=== PATIENT | female | born 1945 | race American Indian/Alaskan Native ===

== ENCOUNTER 2016-12-22 16:36 | Emergency (ER) | payer MEDICARE ==
[2016-12-22 17:39] VITALS: BP 142/84
== END 2016-12-22 19:05 | disposition left against medical advice (07) ==
LOC: ED 16:36
DX: R06.00 Dyspnea, unspecified (principal); Z53.21 Procedure and treatment not carried out due to patient leaving prior to being seen by health care provider

== ENCOUNTER 2017-03-23 14:32 | Inpatient (IN) | payer MEDICARE ==
[2017-03-23] MEDS ORDERED: ASPIRIN PO ONE (15:47)
--- NOTE | 2017-03-23 17:36 | Emergency Department Report ---
ED Chest Pain HPI - General Chief Complaint: Chest Pain Stated Complaint: CHEST PAIN Time Seen by Provider: 03/23/17 16:41 Source: patient, EMS Mode of arrival: Stretcher Limitations: No Limitations - History of Present Illness Initial Comments: 71 YO FEMALE PT WITH C/O RETROSTERNAL CHEST PAIN THAT BEGAN THIS MORNING AT 0400. THE PAIN IS ACHING AND DIFFERENT FROM THE PAIN THAT SHE HAD WHEN SHE HAD HER PRIOR 2 OR. THE PAIN IS NOT ASSOCIATED WITH N/V OR DIAPHORESIS AND IS NONRADIATING. SHE RATES IT 1/10 WHNE IT BEGAN AND SAID THT IT EASED OFF BUT IS STILL 1/10. SHE HAS HAD A COUGH FOR 5 DAYS AND IS A SMOKER STILL. 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 MD Complaint: chest pain -: Gradual, hour(s) (12) Onset: during rest Pain Location: substernal Pain Radiation: none Severity: mild Severity scale (0 -10): 1 Quality: aching Improves With: nothing Worsens With: nothing re: denies: nausea, vomting, diaphoresis, dyspnea - Related Data Home Medications Medication Instructions Recorded Confirmed Last Taken Ipratropium/Albuter (Nf) 2 puff IH QID 06/22/16 06/22/16 06/22/16 [Combivent Inhaler] amLODIPine [Norvasc] 10 mg PO DAILY 06/22/16 06/22/16 06/22/16 Previous Rx's Medication Instructions Recorded Last Taken Type Azithromycin [Zithromax Z-JORGE] 0 mg PO DAILY #1 tab 06/24/16 Unknown Rx Nicotine [Habitrol] 14 mg TD DAILY #30 patch 06/24/16 Unknown Rx Prednisone [predniSONE 10 mg 10 mg PO .TAPER #1 tab.ds.pk 06/24/16 Unknown Rx (6-Day Pack, 21 Tabs)] guaiFENesin DM [Robitussin Dm] 20 ml PO Q8H PRN 10 Days oral.liqd 06/24/16 Unknown Rx Allergies Allergy/AdvReac Type Severity Reaction Status Date / Time No Known Allergies Allergy Verified 06/22/16 19:30 Heart Score - HEART Score History: Highly suspicious EKG: Non-specific Age: > 65 Risk factors: > 3 risk factors or hx of atherosclerotic disease Troponin: < normal limit HEART Score: 7 ED Review of Systems ROS: Stated complaint: CHEST PAIN Other details as noted in HPI Constitutional: denies: chills, fever Eyes: denies: eye pain, eye discharge, vision change ENT: denies: ear pain, throat pain Respiratory: cough. denies: shortness of breath, wheezing Cardiovascular: denies: palpitations, syncope Endocrine: no symptoms reported Gastrointestinal: denies: abdominal pain, nausea, diarrhea Genitourinary: denies: urgency, dysuria, discharge Musculoskeletal: denies: back pain, joint swelling, arthralgia Skin: denies: rash, lesions Neurological: denies: headache, weakness, paresthesias Psychiatric: denies: anxiety, depression Hematological/Lymphatic: denies: easy bleeding, easy bruising ED Past Medical Hx - Past Medical History Hx Hypertension: Yes Hx Heart Attack/AMI: Yes (OR X2 1995,1971) Hx Congestive Heart Failure: No Hx Arthritis: Yes Hx Seizures: Yes Hx COPD: Yes Additional medical history: EPHYSEMA - Surgical History Additional Surgical History: Hyster, BACK SURGERY, LEFT SHOUDER SURGERY, RIGHT HIP REPLACEMENT - Social History Smoking Status: Current Every Day Smoker Substance Use Type: Alcohol - Medications Home Medications: Home Medications Medication Instructions Recorded Confirmed Last Taken Type Ipratropium/Albuter (Nf) 2 puff IH QID 06/22/16 06/22/16 06/22/16 History [Combivent Inhaler] amLODIPine [Norvasc] 10 mg PO DAILY 06/22/16 06/22/16 06/22/16 History Azithromycin [Zithromax Z-JORGE] 0 mg PO DAILY #1 tab 06/24/16 Unknown Rx Nicotine [Habitrol] 14 mg TD DAILY #30 patch 06/24/16 Unknown Rx Prednisone [predniSONE 10 mg 10 mg PO .TAPER #1 tab.ds.pk 06/24/16 Unknown Rx (6-Day Pack, 21 Tabs)] guaiFENesin DM [Robitussin Dm] 20 ml PO Q8H PRN 10 Days oral.liqd 06/24/16 Unknown Rx ED Physical Exam - General Limitations: No Limitations General appearance: alert, in no apparent distress - Head Head exam: Present: atraumatic, normocephalic - Eye Eye exam: Present: normal appearance, EOMI - ENT ENT exam: Present: mucous membranes moist - Neck Neck exam: Present: normal inspection, full ROM - Respiratory Respiratory exam: Present: normal lung sounds bilaterally. Absent: respiratory distress, wheezes, rales, rhonchi - Cardiovascular Cardiovascular Exam: Present: regular rate, normal rhythm, systolic murmur. Absent: diastolic murmur, rubs, gallop - GI/Abdominal GI/Abdominal exam: Present: soft, normal bowel sounds. Absent: distended, tenderness, guarding, rebound - Rectal Rectal exam: Present: deferred - Extremities Exam Extremities exam: Present: normal inspection, full ROM, pedal edema (1+ BILATERAL) - Back Exam Back exam: Present: normal inspection, full ROM - Neurological Exam Neurological exam: Present: alert, oriented X3, CN II-XII intact - Psychiatric Psychiatric exam: Present: normal affect, normal mood - Skin Skin exam: Present: warm, dry, intact, normal color. Absent: rash ED Course Vital Signs 03/23/17 03/23/17 15:32 15:48 Temperature 98.4 F Pulse Rate 79 Respiratory 20 20 Rate Blood Pressure 137/87 [Left] O2 Sat by Pulse 97 Oximetry DARREL score - Darrel Score Age > 65: (1) Yes Aspirin use within the Past 7 Days: (0) No 3 or more CAD Risk Factors: (1) Yes 2 or more Angina events in past 24 hrs: (0) No Known CAD with more than 50% Stenosis: (0) No Elevated Cardiac Markers: (0) No ST Deviation Greater than 0.5mm: (0) No DARREL Score: 2 ED Medical Decision Making - Lab Data Result diagrams: 03/23/17 16:58 03/23/17 17:05 - EKG Data -: EKG Interpreted by Md EKG shows normal: sinus rhythm, axis, intervals, QRS complexes (Q IN V1-V2), ST- T waves Rate: normal - Radiology Data Radiology results: pending (LEFT SHOULDER REPLACEMENT, REST NEGATIVE), image reviewed Critical care attestation.: If time is entered above; I have spent that time in minutes in the direct care of this critically ill patient, excluding procedure time. ED Disposition Clinical Impression: Bronchitis, COPD (chronic obstructive pulmonary disease) Chest pain Qualifiers: Chest pain type: unspecified Qualified Code(s): R07.9 - Chest pain, unspecified Disposition: DC-09 OP ADMIT IP TO THIS HOSP Is pt being admited?: Yes Does the pt Need Aspirin: No Condition: Stable Instructions: Chest Pain (ED), Chronic Obstructive Pulmonary Disease (ED), Chronic Bronchitis (ED) Referrals: PRIMARY CARE, [Primary Care Provider] - 3-5 Days Time of Disposition: 18:18 (CASE REVIEWED W TYLER DASH AND HE WILL ADMIT HER TO HIS SEVICE)
[2017-03-23 17:42] LABS: BUN/Creatinine Ratio 20; Blood Urea Nitrogen 14 mg/dL (7-17); Calcium 9.1 mg/dL (8.4-10.2); Hemolysis Index 12
[2017-03-23 17:44] LABS: Creatine Kinase MB 2.7 ng/mL (0.0-4.0)
[2017-03-23 17:45] LABS: Alanine Aminotransferase 14 units/L (7-56); Albumin 4.1 g/dL (3.9-5)
[2017-03-23 17:46] LABS: Bilirubin,Direct < 0.2 mg/dL (0-0.2)
--- NOTE | 2017-03-23 17:51 | XRay Report ---
FINAL REPORT PROCEDURE: XR CHEST 1V AP TECHNIQUE: Chest radiograph anteroposterior view. CPT 95590 HISTORY: chest pain COMPARISON: No prior studies are available for comparison. FINDINGS: The heart is diffusely enlarged. Pulmonary vasculature not distended. No evidence of pulmonary edema pleural effusion infiltrate or mass. Prosthetic left shoulder is in place. Electronic stimulating leads are seen projecting over the mid thoracic spine. No acute bony abnormalities are identified. Moderate degenerative changes noted in the right glenohumeral joint space. IMPRESSION: Cardiomegaly. Postsurgical changes left shoulder as described. Electronic stimulating leads project over the mid thoracic spine. No acute abnormality is seen..
[2017-03-23 17:52] LABS: Basophils # (Auto) 0.1 K/mm3 (0.0-0.1); Eosinophils # (Auto) 0.2 K/mm3 (0.0-0.4); Hematocrit 41.2 % (30.3-42.9); Hemoglobin 13.6 gm/dl (10.1-14.3); Lymphocytes # (Auto) 2.1 K/mm3 (1.2-5.4); Lymphocytes % (Auto) 24.4 % (13.4-35.0); Mean Corpuscular HGB Conc 33 % (30-34); Mean Corpuscular Hemoglobin 29 pg (28-32); Mean Corpuscular Volume 87 fl (79-97); Monocytes # (Auto) 0.4 K/mm3 (0.0-0.8); Monocytes % (Auto) 4.9 % (0.0-7.3); Platelet Count 335 K/mm3 (140-440); Red Blood Count 4.72 M/mm3 (3.65-5.03); Red Cell Distribution Width 15.1 % (13.2-15.2)
[2017-03-23] MEDS ORDERED: NITROSTAT SL PRN (18:20)
[2017-03-23] MEDS ORDERED: NACL 0.9% 500 ML 500 ML IV ONE (18:21)
[2017-03-23] MEDS ORDERED: ZITHROMAX PO ONE (18:21)
[2017-03-23] MEDS ORDERED: XYLOCAINE 1% MPF 5 mL INFILTRATI ONE (18:21)
[2017-03-23] MEDS ORDERED: PROVENTIL IH ONE (18:23)
[2017-03-23] MEDS ORDERED: ATROVENT IH ONE (18:23)
[2017-03-23] MEDS ORDERED: cefTRIAXone 1 GM in NACL 0.9% 20 ML IV ONE (18:45)
[2017-03-23] MEDS ORDERED: ROCEPHIN 1,000 MG in NACL 0.9% 50 ML IV NR (19:00)
[2017-03-23] MEDS ORDERED: MORPHINE IV PRN ×2 (20:25)
[2017-03-23] MEDS ORDERED: ZOFRAN IV PRN (20:25)
[2017-03-23] MEDS ORDERED: TYLENOL PO PRN (20:25)
[2017-03-23] MEDS ORDERED: PERCOCET 5/325 PO PRN (20:25)
[2017-03-23] MEDS ORDERED: MILK OF MAGNESIA PO PRN (20:25)
[2017-03-23] MEDS ORDERED: DULCOLAX PR PRN (20:25)
--- NOTE | 2017-03-23 20:25 | History and Physical Report ---
History of Present Illness Date of examination: 03/23/17 Date of admission: 03/23/17 Chief complaint: Cc CP since AM History of present illness: History of Present Illness 71 YO FEMALE PT WITH C/O RETROSTERNAL CHEST PAIN THAT BEGAN THIS MORNING AT 0400. THE PAIN IS ACHING AND DIFFERENT FROM THE PAIN THAT SHE HAD WHEN SHE HAD HER PRIOR 2 IA. THE PAIN IS NOT ASSOCIATED WITH N/V OR DIAPHORESIS AND IS NONRADIATING. SHE RATES IT 1/10 WHNE IT BEGAN AND SAID THT IT EASED OFF BUT IS STILL 1/10. SHE HAS HAD A COUGH FOR 5 DAYS AND IS A SMOKER STILL. 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 - Past Medical History Hx Hypertension: Yes Hx Heart Attack/AMI: Yes ([place] X2 1995,1971) Hx Arthritis: Yes Hx Seizures: Yes Hx COPD: Yes Additional medical history: EPHYSEMA - Surgical History Additional Surgical History: Hyster, BACK SURGERY, LEFT SHOUDER SURGERY, RIGHT HIP REPLACEMENT - Social History Smoking Status: Current Every Day Smoker Substance Use Type: Alcohol - Medications Home Medications: Home Medications Medication Instructions Recorded Confirmed Last Taken Type Ipratropium/Albuter (Nf) 2 puff IH QID 06/22/16 06/22/16 06/22/16 History [Combivent Inhaler] amLODIPine [Norvasc] 10 mg PO DAILY 06/22/16 06/22/16 06/22/16 History Azithromycin [Zithromax Z-JORGE] 0 mg PO DAILY #1 tab 06/24/16 Unknown Rx Nicotine [Habitrol] 14 mg TD DAILY #30 patch 06/24/16 Unknown Rx Prednisone [predniSONE 10 mg 10 mg PO .TAPER #1 tab.ds.pk 06/24/16 Unknown Rx (6-Day Pack, 21 Tabs)] guaiFENesin DM [Robitussin Dm] 20 ml PO Q8H PRN 10 Days oral.liqd 06/24/16 Unknown Rx Review of Systems Stated complaint: CHEST PAIN Other details as noted in HPI Constitutional: denies: chills, fever Eyes: denies: eye pain, eye discharge, vision change ENT: denies: ear pain, throat pain Respiratory: cough. denies: shortness of breath, wheezing Cardiovascular: denies: palpitations, syncope Endocrine: no symptoms reported Gastrointestinal: denies: abdominal pain, nausea, diarrhea Genitourinary: denies: urgency, dysuria, discharge Musculoskeletal: denies: back pain, joint swelling, arthralgia Skin: denies: rash, lesions Neurological: denies: headache, weakness, paresthesias Psychiatric: denies: anxiety, depression Hematological/Lymphatic: denies: easy bleeding, easy bruising Medications and Allergies Allergies Allergy/AdvReac Type Severity Reaction Status Date / Time No Known Allergies Allergy Verified 06/22/16 19:30 Home Medications Medication Instructions Recorded Confirmed Last Taken Type amLODIPine [Norvasc] 10 mg PO DAILY 06/22/16 03/23/17 03/23/17 History ALBUTEROL Inhaler [Proair] 1 puff IH QAM 03/23/17 03/23/17 03/23/17 History Budesonide/Formoterol Fumarate 1 puff IH QAM 03/23/17 03/23/17 03/23/17 History [Symbicort 160-4.5 Mcg Inhaler] Ipratropium/Albuter (Nf) 1 puff IH QAM 03/23/17 03/23/17 03/23/17 History [Combivent Inhaler] Active Meds: Active Medications Nitroglycerin (Nitrostat) 0.4 mg SL .Q5MIN PRN PRN Reason: Chest Pain Exam - Constitutional Vitals: Temp Pulse Resp BP Pulse Ox 98.1 F 80 18 154/79 100 03/23/17 19:05 03/23/17 19:28 03/23/17 19:28 03/23/17 19:05 03/23/17 19:05 General appearance: Present: no acute distress, well-nourished - EENT Eyes: Present: PERRL ENT: hearing intact, clear oral mucosa - Neck Neck: Present: supple, normal ROM - Respiratory Respiratory effort: normal Respiratory: bilateral: CTA - Cardiovascular Heart rate: 80 Rhythm: regular Heart Sounds: Present: S1 & S2. Absent: rub, click - Extremities Extremities: no ischemia, pulses intact, pulses symmetrical, No edema Peripheral Pulses: within normal limits - Abdominal General gastrointestinal: Present: soft, non-tender, non-distended, normal bowel sounds Female genitourinary: Present: normal - Integumentary Integumentary: Present: clear, warm, dry - Musculoskeletal Musculoskeletal: gait normal, strength equal bilaterally - Psychiatric Psychiatric: appropriate mood/affect, intact judgment & insight - Neurologic Neurologic: CNII-XII intact, moves all extremities - Allied Health Allied health notes reviewed: nursing, case management Results - Labs CBC & Chem 7: 03/24/17 05:36 03/24/17 05:36 Labs: Laboratory Last Values WBC 8.7 K/mm3 (4.5-11.0) 03/23/17 16:58 RBC 4.72 M/mm3 (3.65-5.03) 03/23/17 16:58 Hgb 13.6 gm/dl (10.1-14.3) 03/23/17 16:58 Hct 41.2 % (30.3-42.9) 03/23/17 16:58 MCV 87 fl (79-97) 03/23/17 16:58 MCH 29 pg (28-32) 03/23/17 16:58 MCHC 33 % (30-34) 03/23/17 16:58 RDW 15.1 % (13.2-15.2) 03/23/17 16:58 Plt Count 335 K/mm3 (140-440) 03/23/17 16:58 Lymph % (Auto) 24.4 % (13.4-35.0) 03/23/17 16:58 [place] % (Auto) 4.9 % (0.0-7.3) 03/23/17 16:58 Eos % (Auto) 2.0 % (0.0-4.3) 03/23/17 16:58 Baso % (Auto) [employer] 03/23/17 16:58 Lymph # 2.1 K/mm3 (1.2-5.4) 03/23/17 16:58 [place] # 0.4 K/mm3 (0.0-0.8) 03/23/17 16:58 Eos # 0.2 K/mm3 (0.0-0.4) 03/23/17 16:58 Baso # 0.1 K/mm3 (0.0-0.1) 03/23/17 16:58 Seg Neutrophils % 67.7 % (40.0-70.0) 03/23/17 16:58 Seg Neutrophils # 5.9 K/mm3 (1.8-7.7) 03/23/17 16:58 D-Dimer 394.80 ng/mlDDU (0-234) H 03/23/17 18:11 Sodium 142 mmol/L (137-145) 03/23/17 17:05 Potassium 3.6 mmol/L (3.6-5.0) 03/23/17 17:05 Chloride 103.1 mmol/L (98-107) 03/23/17 17:05 Carbon Dioxide 19 mmol/L (22-30) L 03/23/17 17:05 Anion Gap 24 mmol/L 03/23/17 17:05 BUN 14 mg/dL (7-17) 03/23/17 17:05 Creatinine 0.7 mg/dL (0.7-1.2) 03/23/17 17:05 Estimated GFR > 60 ml/min 03/23/17 17:05 BUN/Creatinine Ratio 20 % 03/23/17 17:05 Glucose 73 mg/dL (65-100) 03/23/17 17:05 Calcium 9.1 mg/dL (8.4-10.2) 03/23/17 17:05 Total Bilirubin 0.20 mg/dL (0.1-1.2) 03/23/17 17:05 Direct Bilirubin < 0.2 mg/dL (0-0.2) 03/23/17 17:05 Indirect Bilirubin 0.0 mg/dL 03/23/17 17:05 AST 30 units/L (5-40) 03/23/17 17:05 ALT 14 units/L (7-56) 03/23/17 17:05 Alkaline Phosphatase 100 units/L (35-129) 03/23/17 17:05 Total Creatine Kinase 120 units/L (30-135) 03/23/17 17:05 CK-MB (CK-2) 2.7 ng/mL (0.0-4.0) 03/23/17 17:05 CK-MB (CK-2) Rel Index 2.2 (0-4) 03/23/17 17:05 Troponin T < 0.010 ng/mL (0.00-0.029) 03/23/17 17:05 NT-Pro-B Natriuret Pep 76.39 pg/mL (0-900) 03/23/17 17:05 Total Protein 7.2 g/dL (6.3-8.2) 03/23/17 17:05 Albumin 4.1 g/dL (3.9-5) 03/23/17 17:05 Albumin/Globulin Ratio 1.3 % 03/23/17 17:05 Short CBC 03/23/17 03/24/17 Range/Units 16:58 05:36 WBC 8.7 6.8 (4.5-11.0) K/mm3 Hgb 13.6 13.5 (10.1-14.3) gm/dl Hct 41.2 40.3 (30.3-42.9) % Plt Count 335 319 (140-440) K/mm3 BMP 03/23/17 03/24/17 17:05 05:36 Sodium 142 143 Potassium 3.6 3.7 Chloride 103.1 100.7 Carbon Dioxide 19 L 23 BUN 14 9 Creatinine 0.7 0.6 L Glucose 73 76 Calcium 9.1 9.1 Cardiac Enzymes 03/23/17 03/23/17 03/23/17 Range/Units 17:05 17:05 20:27 Total Creatine Kinase 120 122 (30-135) units/L CK-MB (CK-2) 2.7 2.6 (0.0-4.0) ng/mL Troponin T < 0.010 < 0.010 (0.00-0.029) ng/mL 03/24/17 Range/Units 05:36 Total Creatine Kinase 115 (30-135) units/L CK-MB (CK-2) 2.9 (0.0-4.0) ng/mL Troponin T < 0.010 (0.00-0.029) ng/mL Liver Function 03/23/17 03/24/17 Range/Units 17:05 05:36 Total Bilirubin 0.20 0.60 (0.1-1.2) mg/dL Direct Bilirubin < 0.2 (0-0.2) mg/dL AST 30 28 (5-40) units/L ALT 14 13 (7-56) units/L Alkaline Phosphatase 100 103 (35-129) units/L Albumin 4.1 3.9 (3.9-5) g/dL - Imaging and Cardiology EKG: report reviewed (EKG shows normal: sinus rhythm, axis, intervals, QRS complexes (Q IN V1-V2), ST-T waves) Chest x-ray: report reviewed (NAF) Assessment and Plan Advance Directives: Yes (FC) VTE prophylaxis?: Chemical Plan of care discussed with patient/family: Yes - Patient Problems (1) Chest pain Current Visit: Yes Status: Acute Qualifiers: Chest pain type: unspecified Qualified Code(s): R07.9 - Chest pain, unspecified Plan to address problem: Chest pain w/u Serial cardiac enzymes and Lexiscan in AM (2) COPD (chronic obstructive pulmonary disease) Current Visit: Yes Status: Chronic Qualifiers: COPD type: unspecified COPD Qualified Code(s): J44.9 - Chronic obstructive pulmonary disease, unspecified Plan to address problem: Cont Bronchodilators (3) Hypertension Current Visit: No Status: Chronic Qualifiers: Hypertension type: essential hypertension Qualified Code(s): I10 - Essential (primary) hypertension Plan to address problem: Cont antihypertensives (4) CAD (coronary artery disease) Current Visit: Yes Status: Chronic Qualifiers: Coronary Disease-Associated Artery/Lesion type: ute artery [place] vs. transplanted heart: ute heart Associated angina: with unspecified angina Qualified Code(s): I25.119 - Atherosclerotic heart disease of ute coronary artery with unspecified angina pectoris Plan to address problem: On ASA (5) Seizure disorder Current Visit: Yes Status: Chronic Plan to address problem: History of seizure disorder present.Not on any AED's Will initiate if she had a recent seizure (6) DVT prophylaxis Current Visit: Yes Status: Acute Plan to address problem: on Lovenox
[2017-03-23 21:08] LABS: Creatine Kinase MB 2.6 ng/mL (0.0-4.0)
[2017-03-23] MEDS: PEPCID PO SCH (22:33)
[2017-03-24 06:12] LABS: Basophils % (Auto) 0.7 % (0.0-1.8); Eosinophils # (Auto) 0.2 K/mm3 (0.0-0.4); Eosinophils % (Auto) 2.8 % (0.0-4.3); Hematocrit 40.3 % (30.3-42.9); Hemoglobin 13.5 gm/dl (10.1-14.3); Lymphocytes # (Auto) 1.4 K/mm3 (1.2-5.4); Mean Corpuscular HGB Conc 34 % (30-34); Mean Corpuscular Hemoglobin 29 pg (28-32); Mean Corpuscular Volume 88 fl (79-97); Monocytes # (Auto) 0.6 K/mm3 (0.0-0.8); Monocytes % (Auto) 8.5 % (0.0-7.3); Platelet Count 319 K/mm3 (140-440); Red Blood Count 4.59 M/mm3 (3.65-5.03); Red Cell Distribution Width 15.4 % (13.2-15.2)
[2017-03-24 06:25] LABS: Creatine Kinase MB 2.9 ng/mL (0.0-4.0)
[2017-03-24 06:33] LABS: Alanine Aminotransferase 13 units/L (7-56); Albumin 3.9 g/dL (3.9-5); BUN/Creatinine Ratio 15; Blood Urea Nitrogen 9 mg/dL (7-17); Calcium 9.1 mg/dL (8.4-10.2); Hemolysis Index 6
[2017-03-24] MEDS ORDERED: LEXISCAN IV ONE ×2 (08:19→08:23)
[2017-03-24] MEDS ORDERED: NON-FORMULARY (Ipratropium/Albuter (Nf) 1 PUFF) IH SCH (10:00)
[2017-03-24] MEDS ORDERED: LOVENOX SUB-Q SCH (10:00)
[2017-03-24] MEDS ORDERED: BROVANA NEBU IH SCH (10:00)
[2017-03-24] MEDS ORDERED: DUONEB *Not for PRN Use IH SCH (10:00)
[2017-03-24] MEDS ORDERED: NORVASC PO SCH (10:00)
[2017-03-24] MEDS ORDERED: PROAIR IH SCH (10:00)
[2017-03-24] MEDS ORDERED: NON-FORMULARY (Budesonide/Formoterol Fumarate [Symbicort 160-4.5 Mcg Inhaler] 1 PUFF) IH SCH (10:00)
[2017-03-24] MEDS ORDERED: PULMICORT IH SCH (10:00)
[2017-03-24] MEDS: PEPCID PO SCH (10:42)
--- NOTE | 2017-03-24 12:13 | Discharge Summary ---
Providers - Providers Date of Admission: 03/23/17 20:25 Attending physician: CHAN STRONG Primary care physician: PEDIATRIC DERMATOLOGIST Hospitalization Condition: Stable Hospital course: Patient is 71-year-old woman with a history of tobacco dependency, coronary artery disease status post 2 MIs, COPD/emphysema, seizure disorder, hiatal hernia and hypertension who presented with chest paind and underwent thorough critical evaluation and stress test. -Chest pain, atypical most likely muscle skeletal/costochondritis -Tobacco dependency: Product Support Analyst on stopping -Hypertension: Continue antihypertensive and low-salt diet -Cough most Likely URI, chest x-ray no acute findings -Elevated d-dimer with negative CT chest Disposition: DC-01 TO HOME OR SELFCARE Time spent for discharge: 32 min Core Measure Documentation - Palliative Care Palliative Care/ Comfort Measures: Not Applicable - Core Measures Any of the following diagnoses?: none - VTE Discharge Requirements Deep Vein Thrombosis/Pulmonary Embolism Present on Admission: No Has pt received <5 days of overlap therapy or INR<2.0: No Anticoagulant overlap therapy prescribed at discharge: No Contraindication No Overlap Therapy order at DC: Not Indicated Exam - Physical Exam Narrative exam: GEN: WDWN, NAD, AWAKE, ALERT, ORIENTATED 3 HEENT: NCAT, EOMI, PERRL, OP Clear NECK: supple, no adenopathy, no thyromegaly, no JVD CVS/HEART: RRR, NORMAL S1S2, NO JVD, pulses present bilaterally CHEST/LUNGS: CTA B, Symmetrical chest expansion, good air entry bilaterally, reproducible substernal chest wall tenderness doesn't feel exactly like the chest pain she had GI/Abdomen: soft, NTND, good bowel sounds, no guarding or rebound /Bladder: no suprapubic tenderness, no CVA or paraspinal tenderness EXT/Skin: no c/c/e, no obvious rash MSK: FROM x 4 Neuro: CN 2-12 grossly intact, no new focal deficits Psych: calm - Constitutional Vitals: Temp Pulse Resp BP Pulse Ox 98.3 F 58 L 20 147/77 94 03/24/17 05:46 03/24/17 09:56 03/24/17 05:46 03/24/17 08:33 03/24/17 05:46 Plan Activity: other (no strenous activity until cleared by pcp) Diet: low salt Special Instructions: smoking cessation Additional Instructions: I recommend baby aspirin daily if you can tolerate it, also recommend lipid profile with PCP Follow up with: PRIMARY CARE, [Primary Care Provider] - 3-5 Days
--- NOTE | 2017-03-24 12:17 | Progress Note ---
Assessment and Plan Assessment and plan: Patient is 71-year-old woman with a history of tobacco dependency, coronary artery disease status post 2 MIs, COPD/emphysema, seizure disorder, hiatal hernia and hypertension who presented with chest paind and underwent thorough critical evaluation and stress test. -Chest pain, atypical most likely muscle skeletal/costochondritis -Tobacco dependency: Custom Seamstress on stopping -Hypertension: Continue antihypertensive and low-salt diet -Cough most Likely URI, chest x-ray no acute findings -Elevated d-dimer check a CTA of the chest History Interval history: Patient was seen and examined. Follow-up on current diagnosis. Overnight uneventful. Patient denies any current chest pain, shortness breath, nausea/ vomiting or severe headaches. Imaging, nursing note, chart, labs and old chart reviewed. Discussed with patient. Hospitalist Physical - Physical exam Narrative exam: GEN: WDWN, NAD, AWAKE, ALERT, ORIENTATED 3 HEENT: NCAT, EOMI, PERRL, OP Clear NECK: supple, no adenopathy, no thyromegaly, no JVD CVS/HEART: RRR, NORMAL S1S2, NO JVD, pulses present bilaterally CHEST/LUNGS: CTA B, Symmetrical chest expansion, good air entry bilaterally, reproducible substernal chest wall tenderness doesn't feel exactly like the chest pain she had GI/Abdomen: soft, NTND, good bowel sounds, no guarding or rebound /Bladder: no suprapubic tenderness, no CVA or paraspinal tenderness EXT/Skin: no c/c/e, no obvious rash MSK: FROM x 4 Neuro: CN 2-12 grossly intact, no new focal deficits Psych: calm - Constitutional Vitals: Temp Pulse Resp BP Pulse Ox 98.3 F 58 L 20 147/77 94 03/24/17 05:46 03/24/17 09:56 03/24/17 05:46 03/24/17 08:33 03/24/17 05:46 General appearance: Present: no acute distress, well-nourished Results - Labs CBC & Chem 7: 03/24/17 05:36 03/24/17 05:36 Labs: Laboratory Last Values WBC 6.8 K/mm3 (4.5-11.0) 03/24/17 05:36 RBC 4.59 M/mm3 (3.65-5.03) 03/24/17 05:36 Hgb 13.5 gm/dl (10.1-14.3) 03/24/17 05:36 Hct 40.3 % (30.3-42.9) 03/24/17 05:36 MCV 88 fl (79-97) 03/24/17 05:36 MCH 29 pg (28-32) 03/24/17 05:36 MCHC 34 % (30-34) 03/24/17 05:36 RDW 15.4 % (13.2-15.2) H 03/24/17 05:36 Plt Count 319 K/mm3 (140-440) 03/24/17 05:36 Lymph % (Auto) 21.0 % (13.4-35.0) 03/24/17 05:36 [place] % (Auto) 8.5 % (0.0-7.3) H 03/24/17 05:36 Eos % (Auto) 2.8 % (0.0-4.3) 03/24/17 05:36 Baso % (Auto) 0.7 % (0.0-1.8) 03/24/17 05:36 Lymph # 1.4 K/mm3 (1.2-5.4) 03/24/17 05:36 [place] # 0.6 K/mm3 (0.0-0.8) 03/24/17 05:36 Eos # 0.2 K/mm3 (0.0-0.4) 03/24/17 05:36 Baso # 0.0 K/mm3 (0.0-0.1) 03/24/17 05:36 Seg Neutrophils % 67.0 % (40.0-70.0) 03/24/17 05:36 Seg Neutrophils # 4.6 K/mm3 (1.8-7.7) 03/24/17 05:36 D-Dimer 394.80 ng/mlDDU (0-234) H 03/23/17 18:11 Sodium 143 mmol/L (137-145) 03/24/17 05:36 Potassium 3.7 mmol/L (3.6-5.0) 03/24/17 05:36 Chloride 100.7 mmol/L (98-107) 03/24/17 05:36 Carbon Dioxide 23 mmol/L (22-30) 03/24/17 05:36 Anion Gap 23 mmol/L 03/24/17 05:36 BUN 9 mg/dL (7-17) 03/24/17 05:36 Creatinine 0.6 mg/dL (0.7-1.2) L 03/24/17 05:36 Estimated GFR > 60 ml/min 03/24/17 05:36 BUN/Creatinine Ratio 15 % 03/24/17 05:36 Glucose 76 mg/dL (65-100) 03/24/17 05:36 Calcium 9.1 mg/dL (8.4-10.2) 03/24/17 05:36 Total Bilirubin 0.60 mg/dL (0.1-1.2) 03/24/17 05:36 Direct Bilirubin < 0.2 mg/dL (0-0.2) 03/23/17 17:05 Indirect Bilirubin 0.0 mg/dL 03/23/17 17:05 AST 28 units/L (5-40) 03/24/17 05:36 ALT 13 units/L (7-56) 03/24/17 05:36 Alkaline Phosphatase 103 units/L (35-129) 03/24/17 05:36 Total Creatine Kinase 115 units/L (30-135) 03/24/17 05:36 CK-MB (CK-2) 2.9 ng/mL (0.0-4.0) 03/24/17 05:36 CK-MB (CK-2) Rel Index 2.5 (0-4) 03/24/17 05:36 Troponin T < 0.010 ng/mL (0.00-0.029) 03/24/17 05:36 NT-Pro-B Natriuret Pep 76.39 pg/mL (0-900) 03/23/17 17:05 Total Protein 7.3 g/dL (6.3-8.2) 03/24/17 05:36 Albumin 3.9 g/dL (3.9-5) 03/24/17 05:36 Albumin/Globulin Ratio 1.1 % 03/24/17 05:36
[2017-03-24 13:12] VITALS: BP 135/73
[2017-03-24 13:30] LABS: Creatine Kinase MB 2.6 ng/mL (0.0-4.0)
--- NOTE | 2017-03-24 14:44 | Cat Scan Report ---
CTA CHEST: HISTORY: chest pain, shortness of breath. COMPARISON: none. TECHNIQUE: Helical CT in 1.25mm intervals following IV contrast. Pulmonary embolus protocol. Sagittal and coronal reformatted images. Rotational MIP images. FINDINGS: Contrast bolus is satisfactory. No pulmonary embolus is identified. Thyroid gland: Normal. Tracheobronchial tree: Normal. Esophagus: Normal. Heart: Mild to moderate cardiomegaly is evident. Pericardium: Normal. Mediastinum: The aorta is mildly dilated throughout. Aneurysmal dilatation of the ascending aorta measures up to 4.5 cm. No evidence for dissection or stenosis. Lung [place]: normal. Pleural Spaces: Normal. Musculoskeletal: Mild thoracic spondylosis is noted. IMPRESSION: No evidence for pulmonary embolus. Cardiomegaly. The ascending aorta is dilated up to 4.5 cm.
--- NOTE | 2017-03-24 16:31 | Event Note ---
Date: 03/24/17 Called to see patient as consult for 4.5 cm Ascending aortic aneurysm. Patient was discharged and walking out of the room upon arrival at the time of consultation. CTA of the chest had been reviewed. No evidence of dissection or rupture. Explained to the patient that the aneurysm is well below the threshold for repair and gave her a card for followup in the office.
--- NOTE | 2017-03-25 02:05 | Treadmill Report ---
INDICATION: Chest pain. ORDERING PHYSICIAN: Dr. Robert Tubbs. FINDINGS: There is no scintigraphic evidence of myocardial ischemia. The left ventricle is normal in size and systolic function. The left ventricular ejection fraction is measured at 76% with normal wall motion and wall thickening. There is evidence of mild motion artifact noted on stress imaging studies. CONCLUSION: 1. No scintigraphic evidence of myocardial ischemia. 2. Low risk myocardial perfusion study associated with 1 year cardiovascular mortality of less than 1%. JOB# [id number] JESSI/JAKE
== END 2017-03-24 17:19 | disposition left against medical advice (07) | DRG 206 ==
LOC: ED 14:32 → 4A 20:25
PROVIDERS: ADMIT Internal Medicine; ATTEND Internal Medicine
DX: M94.0 Chondrocostal junction syndrome [Tietze] (principal); I10 Essential (primary) hypertension; R05 Cough; Z53.21 Procedure and treatment not carried out due to patient leaving prior to being seen by health care provider; F17.200 Nicotine dependence, unspecified, uncomplicated; M19.90 Unspecified osteoarthritis, unspecified site; I25.10 Atherosclerotic heart disease of native coronary artery without angina pectoris; G40.909 Epilepsy, unspecified, not intractable, without status epilepticus; J43.9 Emphysema, unspecified; Z79.899 Other long term (current) drug therapy; I25.2 Old myocardial infarction; Z71.6 Tobacco abuse counseling; J40 Bronchitis, not specified as acute or chronic; I71.2 Thoracic aortic aneurysm, without rupture
CPT/HCPCS: 36415; 71010; 71275; 78452; 80048; 80053; 80074; 82550; 82553; 83880; 84484; 85025; 85379; 93005; 93010; 93017; 94640; 96374; 99406; A9502; J0696; J1650; J2785; J7040; Q9967

== ENCOUNTER 2017-04-03 10:20 | Emergency (ER) | payer MEDICARE ==
[2017-04-03 12:52] VITALS: BP 130/70
--- NOTE | 2017-04-03 14:03 | XRay Report ---
CHEST 2 VIEWS INDICATION: Productive cough. COMPARISON: 03/23/2017 FINDINGS: Frontal and lateral chest radiographs demonstrate better inspiration with now normal cardiomediastinal silhouette. Clear lungs without pleural effusions or CHF. Stable left shoulder replacement and thoracic spine stimulator leads in this patient with cholecystectomy clips and partially imaged lumbar fusion hardware as well. CONCLUSION: No acute chest process with multiple postsurgical changes noted, as described. Thank you for the opportunity to participate in this patient's care.
--- NOTE | 2017-04-03 19:35 | Emergency Department Report ---
Minor Respiratory - HPI Chief Complaint: Upper Respiratory Infection Stated Complaint: COLD, LOST VOICE Time Seen by Provider: 04/03/17 19:32 ED Review of Systems ROS: Stated complaint: COLD, LOST VOICE Other details as noted in HPI ED Past Medical Hx - Past Medical History Previous Medical History?: Yes Hx Hypertension: Yes Hx Heart Attack/AMI: Yes (MD X2 1995,1971) Hx Congestive Heart Failure: No Hx Arthritis: Yes Hx Seizures: Yes Hx COPD: Yes Additional medical history: EPHYSEMA - Surgical History Past Surgical History?: Yes Additional Surgical History: Hyster, BACK SURGERY, LEFT SHOUDER SURGERY, RIGHT HIP REPLACEMENT - Social History Smoking Status: Current Every Day Smoker Substance Use Type: None - Medications Home Medications: Home Medications Medication Instructions Recorded Confirmed Last Taken Type amLODIPine [Norvasc] 10 mg PO DAILY 06/22/16 03/23/17 03/23/17 History ALBUTEROL Inhaler [ProAir HFA 1 puff IH QAM 03/23/17 03/23/17 03/23/17 History Inhaler] Budesonide/Formoterol Fumarate 1 puff IH QAM 03/23/17 03/23/17 03/23/17 History [Symbicort 160-4.5 Mcg Inhaler] Ipratropium/Albuter (Nf) 1 puff IH QAM 03/23/17 03/23/17 03/23/17 History [Combivent Inhaler] Minor Respiratory Exam - Exam General: Vital signs noted. No distress. Alert and acting appropriately. Neurologic: Alert and oriented, no deficits. Musculoskeletal: Unremarkable. ED Course Vital Signs 04/03/17 12:49 Temperature 99.1 F Pulse Rate 78 Respiratory 16 Rate Blood Pressure 130/70 O2 Sat by Pulse 94 Oximetry ED Medical Decision Making - Radiology Data Radiology results: image reviewed Chest X-ray CONCLUSION: No acute chest process with multiple postsurgical changes noted, as described. Critical care attestation.: If time is entered above; I have spent that time in minutes in the direct care of this critically ill patient, excluding procedure time. ED Disposition Condition: Stable Referrals: PRIMARY CARE, [Primary Care Provider] - 3-5 Days
== END 2017-04-03 22:37 | disposition left against medical advice (07) ==
LOC: ED 10:20
DX: Z53.21 Procedure and treatment not carried out due to patient leaving prior to being seen by health care provider (principal)
CPT/HCPCS: 71046

== ENCOUNTER 2017-07-23 23:00 | Emergency (ER) | payer MEDICARE ==
[2017-07-24] MEDS ORDERED: KEPPRA 1,000 MG/NS 0.75% 100ML 1,000 MG/100 ML BAG IV ONE (00:04)
[2017-07-24] MEDS ORDERED: ATROVENT IH ONE (00:05)
[2017-07-24] MEDS ORDERED: PROVENTIL IH ONE (00:05)
[2017-07-24 00:19] LABS: Hematocrit 39.4 % (30.3-42.9); Hemoglobin 12.8 gm/dl (10.1-14.3); Mean Corpuscular HGB Conc 33 % (30-34); Mean Corpuscular Hemoglobin 28 pg (28-32); Mean Corpuscular Volume 87 fl (79-97); Platelet Count 352 K/mm3 (140-440); Red Blood Count 4.53 M/mm3 (3.65-5.03); Red Cell Distribution Width 15.7 % (13.2-15.2)
[2017-07-24 00:30] LABS: INR 0.82 (0.87-1.13)
--- NOTE | 2017-07-24 00:32 | Emergency Department Report ---
ED Seizure HPI - General Chief Complaint: Seizure Stated Complaint: ISA Time Seen by Provider: 07/23/17 23:55 Source: patient, EMS, old records reviewed Mode of arrival: Stretcher Limitations: Physical Limitation - History of Present Illness Initial Comments: 71-year-old female with a past medical history of seizures (has never been on medications), COPD with 4 L O2 dependence, and hypertension presents to the hospital with seizures and wheezing. Seizure was witnessed by family members and lasted roughly 5 minutes followed by post ictal state. Patient is drowsy but easily arousable and able to answer questions and follow commands. No pain reported. Positive EtOH on breath. Family states the patient does not drink alcohol daily and no known history of alcohol withdrawal seizures. Although she has had seizures "most of her life" she has never been on seizure medication. Last seizure was doing her visits here in early June. Patient was treated for COPD exacerbation and no seizure medication was prescribed on discharge. Patient is noted to be seizing with O2 sat 92% on 4 L upon EMS arrival. Patient received albuterol 5 mg, Solu-Medrol 125 mg in route with improvement in oxygenation. - Related Data Home Medications Medication Instructions Recorded Confirmed Last Taken amLODIPine [Norvasc] 10 mg PO DAILY 06/22/16 07/24/17 03/23/17 ALBUTEROL Inhaler [ProAir HFA 2 puff IH QID PRN 03/23/17 07/24/17 03/23/17 Inhaler] Budesonide/Formoterol Fumarate 1 puff IH QAM 03/23/17 07/24/17 03/23/17 [Symbicort 160-4.5 Mcg Inhaler] Ipratropium/Albuter (Nf) 1 puff IH QAM 03/23/17 07/24/17 03/23/17 [Combivent Inhaler] Previous Rx's Medication Instructions Recorded Last Taken Type Prednisone [predniSONE 10 mg 10 mg PO .TAPER #1 tab.ds.pk 07/05/17 Unknown Rx (6-Day Pack, 21 Tabs)] levETIRAcetam [Keppra TAB] 500 mg PO BID #60 tablet 07/24/17 Unknown Rx predniSONE [Deltasone] 40 mg PO QDAY 5 Days tab 07/24/17 Unknown Rx Allergies Allergy/AdvReac Type Severity Reaction Status Date / Time No Known Allergies Allergy Verified 04/03/17 12:52 ED Review of Systems ROS: Stated complaint: ISA Other details as noted in HPI Comment: All other systems reviewed and negative ED Past Medical Hx - Past Medical History Previous Medical History?: Yes Hx Hypertension: Yes Hx Heart Attack/AMI: Yes Hx Congestive Heart Failure: No Hx Deep Vein Thrombosis: No Hx Pulmonary Embolism: No Hx Arthritis: Yes Hx Seizures: Yes Hx Asthma: No Hx COPD: Yes Hx Tuberculosis: No Hx Dementia: No Additional medical history: EPHYSEMA - Surgical History Past Surgical History?: Yes Hx Coronary Stent: No Hx Pacemaker: No Hx Internal Defibrillator: No Additional Surgical History: Hyster, BACK SURGERY, LEFT SHOUDER SURGERY, RIGHT HIP REPLACEMENT - Social History Smoking Status: Current Some Day Smoker Substance Use Type: Alcohol - Medications Home Medications: Home Medications Medication Instructions Recorded Confirmed Last Taken Type amLODIPine [Norvasc] 10 mg PO DAILY 06/22/16 07/24/17 03/23/17 History ALBUTEROL Inhaler [ProAir HFA 2 puff IH QID PRN 03/23/17 07/24/17 03/23/17 History Inhaler] Budesonide/Formoterol Fumarate 1 puff IH QAM 03/23/17 07/24/17 03/23/17 History [Symbicort 160-4.5 Mcg Inhaler] Ipratropium/Albuter (Nf) 1 puff IH QAM 03/23/17 07/24/17 03/23/17 History [Combivent Inhaler] Prednisone [predniSONE 10 mg 10 mg PO .TAPER #1 tab.ds.pk 07/05/17 07/24/17 Unknown Rx (6-Day Pack, 21 Tabs)] levETIRAcetam [Keppra TAB] 500 mg PO BID #60 tablet 07/24/17 Unknown Rx predniSONE [Deltasone] 40 mg PO QDAY 5 Days tab 07/24/17 Unknown Rx ED Physical Exam - General Limitations: Physical Limitation - Other Other exam information: General: No limitations, patient is alert in no acute distress Head exam: Atraumatic, normocephalic Eyes exam: Normal appearance, pupils equal reactive to light ENT: Moist mucous membrane, normal oropharynx Neck exam: Normal inspection, full range of motion, no meningismus nontender Respiratory exam: Bilateral wheezing, mild tachypnea, no accessory muscle use Cardiovascular: Normal rate and rhythm, normal heart sounds Abdomen: Soft, nondistended, and nontender, with normal bowel sounds, no rebound, or guarding Extremity: Full range of motion normal inspection no deformity Back: Normal Inspection, full range of motion, no tenderness Neurologic: Drowsy but easily arousable, no facial droop, speech clear, equal handgrip and foot dorsiflexion. Sensation grossly intact Psychiatric: normal affect, normal mood Skin: Warm, dry, intact ED Course Vital Signs 07/23/17 07/23/17 07/24/17 23:26 23:55 00:06 Temperature 97.7 F Pulse Rate 71 Pulse Rate [ 89 Posterior] Respiratory 20 20 Rate Respiratory 17 Rate [Posterior ] Blood Pressure 141/83 Blood Pressure [Left] O2 Sat by Pulse 98 98 Oximetry 07/24/17 01:00 Temperature Pulse Rate 70 Pulse Rate [ Posterior] Respiratory 20 Rate Respiratory Rate [Posterior ] Blood Pressure Blood Pressure 136/79 [Left] O2 Sat by Pulse 97 Oximetry ED Medical Decision Making - Lab Data Result diagrams: 07/24/17 00:01 07/24/17 00:01 Lab Results 07/24/17 07/24/17 07/24/17 Range/Units 00:01 00:01 00:01 WBC 6.5 (4.5-11.0) K/mm3 RBC 4.53 (3.65-5.03) M/mm3 Hgb 12.8 (10.1-14.3) gm/dl Hct 39.4 (30.3-42.9) % MCV 87 (79-97) fl MCH 28 (28-32) pg MCHC 33 (30-34) % RDW 15.7 H (13.2-15.2) % Plt Count 352 (140-440) K/mm3 PT (12.2-14.9) Sec. INR (0.87-1.13) POC ABG pH (7.35-7.45) POC ABG pCO2 (35-45) POC ABG pO2 (80-105) POC ABG HCO3 POC ABG Total CO2 POC ABG O2 Sat POC ABG Base Excess FiO2 % Sodium 143 (137-145) mmol/L Potassium 3.7 (3.6-5.0) mmol/L Chloride 102.3 (98-107) mmol/L Carbon Dioxide 24 (22-30) mmol/L Anion Gap 20 mmol/L BUN 9 (7-17) mg/dL Creatinine 0.7 (0.7-1.2) mg/dL Estimated GFR > 60 ml/min BUN/Creatinine Ratio 13 % Glucose 98 (65-100) mg/dL Lactic Acid (0.7-2.0) mmol/L Calcium 8.8 (8.4-10.2) mg/dL Magnesium 2.20 (1.7-2.3) mg/dL Total Creatine Kinase (30-135) units/L NT-Pro-B Natriuret Pep (0-900) pg/mL Plasma/Serum Alcohol (0-0.07) % 07/24/17 07/24/17 07/24/17 Range/Units 00:01 00:01 00:01 WBC (4.5-11.0) K/mm3 RBC (3.65-5.03) M/mm3 Hgb (10.1-14.3) gm/dl Hct (30.3-42.9) % MCV (79-97) fl MCH (28-32) pg MCHC (30-34) % RDW (13.2-15.2) % Plt Count (140-440) K/mm3 PT (12.2-14.9) Sec. INR (0.87-1.13) POC ABG pH (7.35-7.45) POC ABG pCO2 (35-45) POC ABG pO2 (80-105) POC ABG HCO3 POC ABG Total CO2 POC ABG O2 Sat POC ABG Base Excess FiO2 % Sodium (137-145) mmol/L Potassium (3.6-5.0) mmol/L Chloride (98-107) mmol/L Carbon Dioxide (22-30) mmol/L Anion Gap mmol/L BUN (7-17) mg/dL Creatinine (0.7-1.2) mg/dL Estimated GFR ml/min BUN/Creatinine Ratio % Glucose (65-100) mg/dL Lactic Acid 2.70 H* (0.7-2.0) mmol/L Calcium (8.4-10.2) mg/dL Magnesium (1.7-2.3) mg/dL Total Creatine Kinase 138 H (30-135) units/L NT-Pro-B Natriuret Pep (0-900) pg/mL Plasma/Serum Alcohol 0.17 H (0-0.07) % 07/24/17 07/24/17 07/24/17 Range/Units 00:01 00:01 00:34 WBC (4.5-11.0) K/mm3 RBC (3.65-5.03) M/mm3 Hgb (10.1-14.3) gm/dl Hct (30.3-42.9) % MCV (79-97) fl MCH (28-32) pg MCHC (30-34) % RDW (13.2-15.2) % Plt Count (140-440) K/mm3 PT 11.7 L (12.2-14.9) Sec. INR 0.82 L (0.87-1.13) POC ABG pH 7.346 L (7.35-7.45) POC ABG pCO2 43.3 (35-45) POC ABG pO2 94 (80-105) POC ABG HCO3 23.7 POC ABG Total CO2 25 POC ABG O2 Sat 97 POC ABG Base Excess -2 FiO2 36 % Sodium (137-145) mmol/L Potassium (3.6-5.0) mmol/L Chloride (98-107) mmol/L Carbon Dioxide (22-30) mmol/L Anion Gap mmol/L BUN (7-17) mg/dL Creatinine (0.7-1.2) mg/dL Estimated GFR ml/min BUN/Creatinine Ratio % Glucose (65-100) mg/dL Lactic Acid (0.7-2.0) mmol/L Calcium (8.4-10.2) mg/dL Magnesium (1.7-2.3) mg/dL Total Creatine Kinase (30-135) units/L NT-Pro-B Natriuret Pep 30.08 (0-900) pg/mL Plasma/Serum Alcohol (0-0.07) % 07/24/17 Range/Units 03:19 WBC (4.5-11.0) K/mm3 RBC (3.65-5.03) M/mm3 Hgb (10.1-14.3) gm/dl Hct (30.3-42.9) % MCV (79-97) fl MCH (28-32) pg MCHC (30-34) % RDW (13.2-15.2) % Plt Count (140-440) K/mm3 PT (12.2-14.9) Sec. INR (0.87-1.13) POC ABG pH (7.35-7.45) POC ABG pCO2 (35-45) POC ABG pO2 (80-105) POC ABG HCO3 POC ABG Total CO2 POC ABG O2 Sat POC ABG Base Excess FiO2 % Sodium (137-145) mmol/L Potassium (3.6-5.0) mmol/L Chloride (98-107) mmol/L Carbon Dioxide (22-30) mmol/L Anion Gap mmol/L BUN (7-17) mg/dL Creatinine (0.7-1.2) mg/dL Estimated GFR ml/min BUN/Creatinine Ratio % Glucose (65-100) mg/dL Lactic Acid 3.20 H* (0.7-2.0) mmol/L Calcium (8.4-10.2) mg/dL Magnesium (1.7-2.3) mg/dL Total Creatine Kinase (30-135) units/L NT-Pro-B Natriuret Pep (0-900) pg/mL Plasma/Serum Alcohol (0-0.07) % - Radiology Data Radiology results: report reviewed interpreted by me: cxr pa and lat FINDINGS: The heart is mildly enlarged. The lungs are not congested. There are no localized infiltrates or effusions. The skeletal structures reveal generalized osteoporosis. There is previous left shoulder arthroplasty changes. There is also a TENS unit superimposed of the mid dorsal spine. IMPRESSION: Cardiomegaly. No acute process in the chest. - Medical Decision Making Seizure Patient treated with Keppra Likely the cause of elevated lactic acid. Patient does not have any other signs to suggest sepsis. COPD exacerbation Additional albuterol and Atrovent provided ABG reveals no co2 retention. f wheezing improved + acute etoh intox pt at baseline without deficits pt does not want to be admitted will be d/ce home with keppra 500mg bid prednisone taper for copd exacerbation and to continue home o2 and nebs - Differential Diagnosis copd, pneumonia, sz, co2 retention, encephalopathy Critical Care Time: No Critical care attestation.: If time is entered above; I have spent that time in minutes in the direct care of this critically ill patient, excluding procedure time. ED Disposition Clinical Impression: Seizure, Alcohol intoxication, COPD exacerbation Disposition: DC-01 TO HOME OR SELFCARE Is pt being admited?: No Does the pt Need Aspirin: No Condition: Stable Instructions: Chronic Obstructive Pulmonary Disease (ED), Recurrent Seizures Adult (ED) Additional Instructions: Take medication as prescribed. Follow-up with your primary care doctor or doctor provided and the neurologist provided. Prescriptions: levETIRAcetam [Keppra TAB] 500 mg PO BID #60 tablet predniSONE [Deltasone] 40 mg PO QDAY 5 Days tab Referrals: ASHUTOSH MADRID MD [Primary Care Provider] - 3-5 Days your, pmd [Other] - 3-5 Days ASHLEY CHARLES MD [Staff Physician] - 3-5 Days (neurology) Time of Disposition: 04:27
[2017-07-24 00:41] LABS: BUN/Creatinine Ratio 13; Blood Urea Nitrogen 9 mg/dL (7-17); Calcium 8.8 mg/dL (8.4-10.2); Hemolysis Index 115
--- NOTE | 2017-07-24 00:56 | XRay Report ---
FINAL REPORT EXAM: XR CHEST 1V AP HISTORY: sob, seizure TECHNIQUE: A portable upright view the chest was obtained and compared the study of 07/03/2017. FINDINGS: The heart is mildly enlarged. The lungs are not congested. There are no localized infiltrates or effusions. The skeletal structures reveal generalized osteoporosis. There is previous left shoulder arthroplasty changes. There is also a TENS unit superimposed of the mid dorsal spine. IMPRESSION: Cardiomegaly. No acute process in the chest.
[2017-07-24] MEDS ORDERED: NACL 0.9% 1000 ML 1,000 ML IV ONE (01:36)
[2017-07-24 06:34] VITALS: BP 132/76
== END 2017-07-24 06:34 | disposition home or self-care (01) ==
LOC: ED 23:00
DX: J44.1 Chronic obstructive pulmonary disease with (acute) exacerbation (principal); R56.9 Unspecified convulsions; F10.129 Alcohol abuse with intoxication, unspecified; I10 Essential (primary) hypertension; M19.90 Unspecified osteoarthritis, unspecified site; F17.200 Nicotine dependence, unspecified, uncomplicated; Y90.0 Blood alcohol level of less than 20 mg/100 ml; Z96.641 Presence of right artificial hip joint; Z90.710 Acquired absence of both cervix and uterus; Z99.81 Dependence on supplemental oxygen
CPT/HCPCS: 36415; 71045; 80048; 82140; 82550; 82803; 83735; 83880; 85027; 85610; 94640; 96365; 99285; G0480; J1953; J7030; 80320

== ENCOUNTER 2017-11-29 09:02 | Outpatient (CLI) | payer MEDICARE, MEDICAID ==
[2017-11-29 09:52] LABS: Blood Urea Nitrogen 10 mg/dL (7-17)
--- NOTE | 2017-11-29 10:39 | Cat Scan Report ---
CTA CHEST: HISTORY: Thoracic aortic aneurysm without rupture. COMPARISON: 03/24/17. TECHNIQUE: Helical CT in 1.25mm intervals following IV contrast. Sagittal and coronal reformatted images. Rotational MIP images. FINDINGS: Contrast bolus is satisfactory. Thyroid gland: Normal. Tracheobronchial tree: Normal. Esophagus: Normal. Heart: Mild cardiomegaly is stable. Pericardium: Normal. Mediastinum: The thoracic aorta is mildly ectatic. No significant atherosclerotic plaques, ulceration or dissection. Dilatation of the ascending aorta is stable measuring 4.5 cm in maximum diameter. The aortic arch measures 3.1 cm. The descending thoracic aorta measures 3.0 cm. The central pulmonary arteries are clear with no evidence of embolus. No mediastinal mass or adenopathy. Lung Noriega: Mild centrilobular emphysematous changes are identified in the upper lobes. Minor linear scarring or atelectasis is noted in the lingula. No evidence for mass or infiltrate. Pleural Spaces: Normal. Musculoskeletal: Intact. A thoracic stimulator device terminates in the posterior spinal canal near the level of T6-7. IMPRESSION: Stable dilatation of the ascending aorta measuring 4.5 cm as described. Mild emphysematous changes. Mild cardiomegaly, stable.
== END 2017-11-29 09:03 | disposition home or self-care (01) ==
LOC: CT 09:02
PROVIDERS: ATTEND Internal Medicine
DX: I71.2 Thoracic aortic aneurysm, without rupture (principal); I51.7 Cardiomegaly; J43.9 Emphysema, unspecified; I10 Essential (primary) hypertension; I25.10 Atherosclerotic heart disease of native coronary artery without angina pectoris
CPT/HCPCS: 36415; 71275; 82565; 84520; Q9967

== ENCOUNTER 2018-07-06 18:54 | Emergency (ER) | payer MEDICARE ==
--- NOTE | 2018-07-06 19:50 | Emergency Department Report ---
Blank Doc - Documentation Documentation: 72 y/o female with SOB and leg swelling with hx/o mi. orders placed: CXR, CBC, CMP,BNP
[2018-07-06 20:31] LABS: Hematocrit 38.4 % (30.3-42.9); Hemoglobin 12.4 gm/dl (10.1-14.3); Mean Corpuscular HGB Conc 32 % (30-34); Mean Corpuscular Volume 87 fl (79-97); Platelet Count 312 K/mm3 (140-440); Red Blood Count 4.44 M/mm3 (3.65-5.03); Red Cell Distribution Width 14.4 % (13.2-15.2)
[2018-07-06 20:36] LABS: Alanine Aminotransferase 41 units/L (7-56); Albumin 4.1 g/dL (3.9-5); BUN/Creatinine Ratio 24; Blood Urea Nitrogen 17 mg/dL (7-17); Calcium 9.4 mg/dL (8.4-10.2); Hemolysis Index 4
--- NOTE | 2018-07-06 22:47 | XRay Report ---
PROCEDURE: XR CHEST ROUTINE 2V TECHNIQUE: PA and lateral chest radiographs were obtained. HISTORY: sob, cough leg swelling COMPARISONS: 2017. FINDINGS: Heart: Mild cardiomegaly is noted. Mediastinum/Vessels: Normal. Lungs/Pleural space: Lungs are hyperinflated. There are no confluent infiltrates or mass lesions. Pl eural spaces are clear.. Bony thorax: No acute osseous abnormality. IMPRESSION: COPD No acute pulmonary process Mild cardiomegaly. This document is electronically signed by Antony Blood MD., July 06 2018 10:45:29 PM ET
[2018-07-06] MEDS ORDERED: LASIX IV ONE (23:14)
[2018-07-06 23:50] VITALS: BP 114/68
--- NOTE | 2018-07-07 00:48 | Emergency Department Report ---
HPI - General Chief Complaint: Extremity Injury, Lower Time Seen by Provider: 07/06/18 22:41 - HPI HPI: 72-year-old -[place] female presents to the ED with bilateral leg swelling. Denies any fever, chills or night sweats. States symptoms are chr onic since she's been on blood pressure medicine. swelling improvement her stopping her medication. ED Past Medical Hx - Past Medical History Previous Medical History?: Yes Hx Hypertension: Yes Hx Heart Attack/AMI: Yes Hx Diabetes: (unsure) Hx Arthritis: Yes Hx Seizures: Yes Hx COPD: Yes (3lpm prn) Additional medical history: EPHYSEMA - Surgical History Past Surgical History?: Yes Additional Surgical History: Hyster, BACK SURGERY, LEFT SHOUDER SURGERY, RIGHT HIP REPLACEMENT - Social History Smoking Status: Current Every Day Smoker Substance Use Type: None - Medications Home Medications: Home Medications Medication Instructions Recorded Confirmed Last Taken Type amLODIPine [Norvasc] 10 mg PO DAILY 06/22/16 04/01/18 03/23/17 History ALBUTEROL Inhaler (OR & NICU) 2 puff IH QID PRN 03/23/17 04/01/18 03/23/17 History [ProAir HFA Inhaler] Budesonide/Formoterol Fumarate 1 puff IH QAM 03/23/17 04/01/18 01/29/18 History [Symbicort 160-4.5 Mcg Inhaler] 500mg Ipratropium/Albuter (Nf) 1 puff IH QAM 03/23/17 04/01/18 03/23/17 History [Combivent Inhaler] Prednisone [predniSONE 10 mg 10 mg PO .TAPER #1 tab.ds.pk 07/05/17 04/01/18 Unknown Rx (6-Day Pack, 21 Tabs)] levETIRAcetam [Keppra TAB] 500 mg PO BID #60 tablet 07/24/17 04/01/18 Unknown Rx predniSONE [Deltasone] 40 mg PO QDAY 5 Days tab 07/24/17 04/01/18 Unknown Rx ALPRAZolam [Xanax TAB] 0.25 mg PO BID PRN #6 tab 01/09/18 04/01/18 Unknown Rx Aspirin TAB 325 mg PO DAILY 01/29/18 04/01/18 Unknown History Cyclobenzaprine HCl [Flexeril 5 MG 5 mg PO HS 04/01/18 04/01/18 Unknown History TAB] Fluticasone/Vilanterol [Breo 100 inhalation PO DAILY 04/01/18 04/01/18 Unknown History Ellipta 100-25 Mcg INH] Fluticasone/Vilanterol [Breo 100 inhalation PO DAILY 04/01/18 04/01/18 Unknown History Ellipta 100-25 Mcg INH] Valsartan 160 mg PO DAILY 04/01/18 04/01/18 Unknown History Aspirin EC [Aspirin Enteric Coated 325 mg PO QDAY tablet 04/02/18 Unknown Rx TAB] AtorvaSTATin [Lipitor] 20 mg PO QHS tablet 04/02/18 Unknown Rx Lisinopril [Zestril TAB] 5 mg PO QDAY tablet 04/02/18 Unknown Rx ED Review of Systems ROS: Stated complaint: LEGS SWELLING Other details as noted in HPI Comment: All other systems reviewed and negative Constitutional: denies: no symptoms reported, diaphoresis ENT: denies: ear pain Respiratory: denies: cough Musculoskeletal: other (leg swelling) Neurological: denies: headache, weakness Psychiatric: denies: anxiety, depression Physical Exam - Physical Exam Vital Signs: Vital Signs 07/06/18 07/06/18 07/06/18 19:46 22:43 22:45 Temperature 98.3 F Pulse Rate 88 84 Respiratory 20 13 25 H Rate Blood Pressure 97/61 121/71 07/06/18 23:00 Temperature Pulse Rate 80 Respiratory 19 Rate Blood Pressure 114/68 Physical Exam: - Physical Exam Physical Exam: - General Limitations: No Limitations General appearance: alert, in no apparent distress. - Head Head exam: Present: atraumatic, normocephalic - Eye Eye exam: Present: normal appearance - ENT ENT exam: Present: mucous membranes moist - Neck Neck exam: Present: normal inspection - Respiratory Respiratory exam: Present: normal lung sounds bilaterally. Absent: respiratory distress - Cardiovascular Cardiovascular Exam: Present: normal rhythm. Absent: systolic murmur, diastolic murmur, rubs, gallop - GI/Abdominal GI/Abdominal exam: Present: soft, normal bowel sounds - Extremities Exam Extremities exam: Present: Mild peripheral edema - Back Exam Back exam: Present: normal inspection - Neurological Exam Neurological exam: Present: alert, oriented X3 - Psychiatric Psychiatric exam: normal affect and mood - Skin Skin exam: Present: warm, dry, intact, normal color. Absent: rash ED Course Vital Signs 07/06/18 07/06/18 07/06/18 19:46 22:43 22:45 Temperature 98.3 F Pulse Rate 88 84 Respiratory 20 13 25 H Rate Blood Pressure 97/61 121/71 07/06/18 23:00 Temperature Pulse Rate 80 Respiratory 19 Rate Blood Pressure 114/68 - Reevaluation(s) Reevaluation #1: 07/07/18 01:36 Patient refuses medications wants to go home. ED Medical Decision Making - Lab Data Result diagrams: 07/06/18 19:54 07/06/18 19:54 Critical care attestation.: If time is entered above; I have spent that time in minutes in the direct care of this critically ill patient, excluding procedure time. ED Disposition Clinical Impression: Peripheral edema Disposition: DC-01 TO HOME OR SELFCARE Is pt being admited?: No Does the pt Need Aspirin: No Condition: Stable Referrals: JOSE TREVIÑO MD [Primary Care Provider] - 3-5 Days
== END 2018-07-07 01:06 | disposition home or self-care (01) ==
LOC: ED 18:54
DX: R60.9 Edema, unspecified (principal); I10 Essential (primary) hypertension; I25.2 Old myocardial infarction; M19.90 Unspecified osteoarthritis, unspecified site; J44.9 Chronic obstructive pulmonary disease, unspecified; F17.200 Nicotine dependence, unspecified, uncomplicated; Z98.890 Other specified postprocedural states; Z90.710 Acquired absence of both cervix and uterus
CPT/HCPCS: 36415; 71046; 80053; 83880; 84484; 85027; 93005; 93010; J1940

== ENCOUNTER 2018-12-07 07:23 | Day surgery (SDC) | payer MEDICARE ==
[2018-12-07] MEDS ORDERED: ECOTRIN PO ONE (07:38)
[2018-12-07] MEDS ORDERED: NACL 0.9% 500 ML 500 ML IV SCH (08:00)
[2018-12-07 08:17] LABS: Basophils % (Auto) 0.5 % (0.0-1.8); Eosinophils # (Auto) 0.3 K/mm3 (0.0-0.4); Eosinophils % (Auto) 3.6 % (0.0-4.3); Hematocrit 38.2 % (30.3-42.9); Hemoglobin 12.7 gm/dl (10.1-14.3); Lymphocytes # (Auto) 1.7 K/mm3 (1.2-5.4); Mean Corpuscular HGB Conc 33 % (30-34); Mean Corpuscular Volume 85 fl (79-97); Monocytes # (Auto) 0.5 K/mm3 (0.0-0.8); Monocytes % (Auto) 6.4 % (0.0-7.3); Platelet Count 257 K/mm3 (140-440); Red Blood Count 4.49 M/mm3 (3.65-5.03); Red Cell Distribution Width 15.8 % (13.2-15.2)
[2018-12-07 08:26] LABS: BUN/Creatinine Ratio 13; Blood Urea Nitrogen 8 mg/dL (7-17); Calcium 9.3 mg/dL (8.4-10.2); Hemolysis Index 6
[2018-12-07 08:27] LABS: INR 0.85 (0.87-1.13)
[2018-12-07 08:28] LABS: Partial Thromboplastin Time 27.1 Sec. (24.2-36.6)
[2018-12-07] MEDS ORDERED: K-DUR PO NR (09:00)
[2018-12-07] MEDS ORDERED: HEPARIN/NS 5000 UNIT/500ML(CATH LAB) 1,000 ML IR ONE (09:47)
[2018-12-07] MEDS: VERSED ONE ×2 (09:59→10:22)
[2018-12-07] MEDS: CALAN ONE ×2 (10:00→10:24)
[2018-12-07] MEDS: SUBLIMAZE ONE ×2 (10:00→10:22)
[2018-12-07] MEDS: HEPARIN 10,000 UNITS/10 ML ONE ×2 (10:00→10:24)
[2018-12-07] MEDS: XYLOCAINE 2% INFILTRATI ONE ×2 (10:00→10:23)
[2018-12-07] MEDS: NITROGLYCERIN SYRINGE 3 ML ONE ×2 (10:01→10:24)
--- NOTE | 2018-12-07 10:50 | Short Stay Summary ---
Short Stay Documentation Date of service: 12/07/18 - History H&P: obtained from office - Allergies and Medications Current Medications: Allergies diltiazem Adverse Reaction (Verified 12/07/18 07:38) Dizziness Home Medications Medication Instructions Recorded Confirmed Last Taken Type amLODIPine [Norvasc] 10 mg PO DAILY 06/22/16 12/07/18 12/07/18 History 10mg ALBUTEROL Inhaler (OR & NICU) 2 puff IH QID PRN 03/23/17 12/07/18 12/06/18 History [ProAir HFA Inhaler] 2 Budesonide/Formoterol Fumarate 1 puff IH QAM 03/23/17 12/07/18 12/07/18 History [Symbicort 160-4.5 Mcg Inhaler] 1 Ipratropium/Albuter (Nf) 1 puff IH QAM 03/23/17 12/07/18 12/07/18 History [Combivent Inhaler] 1 levETIRAcetam [Keppra TAB] 500 mg PO BID #60 tablet 07/24/17 12/07/18 12/06/18 Rx 500mg ALPRAZolam [Xanax TAB] 0.25 mg PO BID PRN #6 tab 01/09/18 12/07/18 11/26/18 Rx 0.25mg Aspirin TAB 81 mg PO DAILY 01/29/18 12/07/18 12/06/18 History 81mg Cyclobenzaprine HCl [Flexeril 5 MG 5 mg PO HS 04/01/18 12/07/18 12/06/18 History TAB] 5mg Fluticasone/Vilanterol [Breo 100 inhalation PO DAILY 04/01/18 12/07/18 12/07/18 History Ellipta 100-25 Mcg INH] 1 Valsartan 160 mg PO DAILY 04/01/18 12/07/18 12/06/18 History 160mg AtorvaSTATin [Lipitor] 20 mg PO QHS tablet 04/02/18 12/07/18 12/06/18 Rx 20mg Cyproheptadine [Periactin] 4 mg PO TID 12/07/18 12/07/18 12/06/18 History 4mg Active Medications Sodium Chloride (Nacl 0.9% 500 Ml) 500 mls @ 50 mls/hr IV DIRECT ASHLEY Stop: 12/07/18 17:59 Last Admin: 12/07/18 08:14 Dose: 50 mls/hr Documented by: Potassium Chloride (K-Dur) 40 meq PO ONCE NR Stop: 12/07/18 12:00 Last Admin: 12/07/18 09:00 Dose: 40 meq Documented by: - Physical exam General appearance: no acute distress Integumentary: no rash HEENT: Atraumatic Lungs: Clear to auscultation Breasts: deferred Heart: Regular rate Gastrointestinal: normal Female Genitourinary: deferred Rectal Exam: deferred Extremities: no ischemia Neurological: Normal gait - Brief post op/procedure progress note Date of procedure: 12/07/18 Pre-op diagnosis: Aortic aneurysm Post-op diagnosis: same Procedure: LHC, LV gram Anesthesia: MAC Findings: See report Surgeon: JENNIFER MORALES Estimated blood loss: none Pathology: none Condition: stable - Hospital course Hospital course: Uneventful - Disposition Condition at discharge: Good Disposition: DC-01 TO HOME OR SELFCARE Short Stay Discharge Plan Activity: no driving until cleared by PCP (for 24 hours) Weight Bearing Status: Non-Weight Bearing Diet: low fat, low cholesterol, low salt Follow up with: ELEANOR MUNOZ MD [Primary Care Provider] - 7 Days Prescriptions: Potassium Chloride [K-Dur] 20 meq PO QDAY #7 tablet
[2018-12-07 13:24] VITALS: BP 133/89
--- NOTE | 2018-12-07 17:31 | Cardiac Catherization Report ---
LEFT HEART CATH ORDERING PHYSICIAN: Dr. Velasquez Meza MD INDICATIONS: Preoperative cardiac catheterization prior to aortic root surgery. PROCEDURES PERFORMED: 1. Selective left and right coronary angiography. 2. Left ventriculography. DESCRIPTION OF PROCEDURE: After obtaining the consent, the patient was draped using sterile technique. A 2% lidocaine was injected into the right wrist. A 6-[place]an vascular sheath was inserted into the right radial artery, 6-[place] JL3.5 catheter was used to selectively engage left coronary artery, 6-[place] JR4 catheter was used to selectively engage the right coronary artery, a 6-[place] JR4 catheter was used to hand inject the left ventriculogram. A 6-[place] pigtail catheter was used to perform an ascending aortogram. No complications occurred during the procedure. Hemostasis was achieved at the end of the procedure using manual pressure. SPECIMEN REMOVED: None. TOTAL SEDATION ADMINISTERED: 1 mg of IV Versed and 25 mcg of IV fentanyl. PHYSICIAN-PATIENT [id number] SEDATION START TIME: 10:22 a.m. PHYSICIAN-PATIENT [id number] SEDATION STOP TIME: 10:33 a.m. Total sedation time was 11 minutes. FINDINGS: 1. HEMODYNAMICS: Aortic pressure 121/70, LV systolic pressure 128 mmHg, LV end diastolic pressure 9 mmHg. 2. CARDIAC STRUCTURES: The left ventricle is normal in size and systolic function. The left ventricular ejection fraction is estimated at 60%. The aortic root as well as the ascending aorta are dilated. There is evidence of 1+ aortic regurgitation. 3. CORONARY ANATOMY: 1. This is a right dominant circulation. 2. The left main is angiographically normal. 3. The LAD exhibits evidence of a focal 50-60% lesion in the very distal segment of the vessel. 4. The left circumflex artery is angiographically normal. 5. The right coronary artery has mild 20% tubular disease noted in the proximal vessel. IMPRESSION: 1. Moderate focal nonobstructive disease noted in the distal LAD. 2. Mild nonobstructive disease noted in the proximal right coronary artery. 3. Normal left ventricular size and systolic function. 4. Dilated aortic root and ascending aorta with evidence of 1+ aortic regurgitation. 5. Normal left ventricular end-diastolic pressure. RECOMMENDATION: Follow up with Cardiothoracic Surgery for aortic root repair. JOB# [id number] JESSI/NTS
== END 2018-12-07 15:09 | disposition home or self-care (01) ==
LOC: CATHLABREC 07:23
PROVIDERS: ATTEND Internal Medicine
DX: I25.10 Atherosclerotic heart disease of native coronary artery without angina pectoris (principal); I35.1 Nonrheumatic aortic (valve) insufficiency; I77.819 Aortic ectasia, unspecified site; I10 Essential (primary) hypertension; F10.10 Alcohol abuse, uncomplicated; I73.9 Peripheral vascular disease, unspecified; F17.210 Nicotine dependence, cigarettes, uncomplicated; E78.00 Pure hypercholesterolemia, unspecified; J43.9 Emphysema, unspecified; M19.90 Unspecified osteoarthritis, unspecified site; Z98.890 Other specified postprocedural states; Z79.899 Other long term (current) drug therapy; Z98.49 Cataract extraction status, unspecified eye; Z90.49 Acquired absence of other specified parts of digestive tract; Z90.710 Acquired absence of both cervix and uterus; Z86.2 Personal history of diseases of the blood and blood-forming organs and certain disorders involving the immune mechanism; Z88.8 Allergy status to other drugs, medicaments and biological substances
CPT/HCPCS: 36415; 80048; 85025; 85610; 85730; 93005; 93010; 93458; 93567; 99156; C1894; J1644; J2250; J3010; J7040; Q9967

== ENCOUNTER 2019-05-31 09:43 | Emergency (ER) | payer MEDICARE ==
[2019-05-31] MEDS ORDERED: ASPIRIN 325 MG TAB PO ONE (09:45)
[2019-05-31 09:55] VITALS: BP 90/57
--- NOTE | 2019-05-31 10:20 | XRay Report ---
CHEST 1 VIEW INDICATION: Chest Pain. COMPARISON: 07/06/2018 FINDINGS: Support devices: Thoracic stimulator device terminates near T7 level. Heart: Within normal limits. Lungs/Pleura: The lungs are hyperinflated but clear. No evidence for pneumonia, pleural fluid or pneu mothorax. Additional findings: Left shoulder arthroplasty changes and sternotomy wires are noted. IMPRESSION: No acute findings. Hyperinflated lungs. Signer Name: Migue Calzada Jr, MD Signed: 05/31/2019 10:16 AM Workstation Name: [id number]
[2019-05-31 10:47] LABS: Basophils % (Auto) 0.4 % (0.0-1.8); Eosinophils # (Auto) 0.4 K/mm3 (0.0-0.4); Eosinophils % (Auto) 5.8 % (0.0-4.3); Hematocrit 35.2 % (30.3-42.9); Hemoglobin 11.5 gm/dl (10.1-14.3); Lymphocytes # (Auto) 1.9 K/mm3 (1.2-5.4); Lymphocytes % (Auto) 29.3 % (13.4-35.0); Mean Corpuscular HGB Conc 33 % (30-34); Mean Corpuscular Volume 79 fl (79-97); Monocytes # (Auto) 0.4 K/mm3 (0.0-0.8); Monocytes % (Auto) 5.7 % (0.0-7.3); Platelet Count 372 K/mm3 (140-440); Red Blood Count 4.49 M/mm3 (3.65-5.03); Red Cell Distribution Width 17.1 % (13.2-15.2)
[2019-05-31 10:58] LABS: BUN/Creatinine Ratio 17; Blood Urea Nitrogen 15 mg/dL (7-17); Calcium 9.3 mg/dL (8.4-10.2); Hemolysis Index 7
--- NOTE | 2019-05-31 11:12 | Emergency Department Report ---
ED Chest Pain HPI - General Chief Complaint: Chest Pain Time Seen by Provider: 05/31/19 11:09 Source: patient Mode of arrival: Wheelchair Limitations: No Limitations - History of Present Illness Initial Comments: This is a 73-year-old female who was active cardiac rehab. She states that she was walking in the door when she developed chest pain that lasted for a few seconds. She described it as sharp in the left chest without radiation. It was not pleuritic. There was no associated symptoms. Patient stated that 5 minutes later she had a another similar chest pain lasting only seconds. Patient has been here several times for atypical chest pain. She has had previous negative thallium test. Some of her prior records seem to indicate a history of coronary artery disease. However I am sure the patient has had a cardiac cath and I do not believe she is ever been stented. The patient denies any leg pain or swelling. She has had no recent travel. She denies any respiratory symptoms. She is asymptomatic at time of my encounter. The patient has had a median sternotomy for valvular surgery. She states that she had 2 valves worked on 1 of which I presume was the aortic valve. I do not know if she was grafted as she has a history of a TAA. She is a poor historian. Her surgery was in January 2019. 2019: Assessment and Plan 1. Chest pain rule out ischemic coronary artery disease. 2. History of coronary artery disease 3. Chronic obstructive pulmonary disease 4. Left leg pain rule out ischemic peripheral vascular disease 5. Hyperlipidemia 6. Essential hypertension 7. Seizure disorder 8. History of alcoholism and alcoholic liver disease 9. Stable thoracic aortic aneurysm 2018: 72-year-old woman who presents with atypical, poorly characterized chest pain. ECG is normal sinus rhythm with poor R-wave progression, but no acute ischemic changes. 10 months ago, she underwent a pharmacologic thallium stress test in this hospital which was normal. Her comorbidities include a seizure disorder, and she is reported to have had a seizure episode as the evening while in the emergency room. Respiratory cardiac status, a rule out AR protocol has been completed and the medical service ordered a Lexiscan thallium stress test. Recommendations: We will cancel Lexiscan stress test in the setting of active seizure disorder. We will defer to internal medicine and neurology for further management and workup of the ongoing seizures. Eventually, if stress testing is indicated either predischarge or outpatient, will use dobutamine for pharmacologic stress. Original Note: History of Present Illness Consult date: 01/29/18 Consult reason: chest pain History of present illness: This is a 72yr old woman who presented with complaints of chest pain. In addition, while in the emergency department, patient was reported to have a generalized tonic-clonic seizure. Patient denies chest pain on exertion. She denies unusual shortness of breath and palpitations. There was no reports of syncope. Cycled troponins are negative. No acute ischemic changes seen on her presenting ECG. Patient was planned to have a persantine stress thallium test today, ordered by the primary team, but this was canceled due to seizure disorder. A cardiac consultation was requested for chest pain evaluation. Patient gives a history of Seizure disorder. She has a history of COPD, Hypertension, Hyperlipidema and Thoracic aortic aneurysm measuring 4.5cm by CTA done 2 months ago. There is no history of coronary artery disease. Late 2016 she had a stress thallium test that documents no evidence of ischemia. An echocardi ogram, done as an outpatient August of this year, documents a mild to moderate aortic regurgitation with a normal left ventricular systolic function, ejection fraction 55%. MD Complaint: chest pain Onset: during rest re: denies: nausea, vomting, diaphoresis Other Symptoms: denies: cough, fever, syncope Treatments Prior to Arrival: none - Related Data Home Medications Medication Instructions Recorded Confirmed Last Taken Fluticasone/Vilanterol [Breo 100 inhalation PO DAILY 04/01/18 05/16/19 04/08/19 Ellipta 100-25 Mcg INH] Valsartan 160 mg PO DAILY 04/01/18 05/16/19 05/09/19 Aspirin EC [Halfprin EC] 81 mg PO QDAY 05/16/19 05/16/19 05/09/19 Docusate Sodium [Colace] 100 mg PO BID PRN 05/16/19 05/16/19 05/09/19 amLODIPine [Norvasc] 5 mg PO DAILY 05/16/19 05/16/19 05/09/19 hydroCHLOROthiazide 25 mg PO DAILY 05/16/19 05/16/19 05/09/19 [Hydrochlorothiazide] traMADoL [Ultram 50 MG tab] 50 mg PO Q8HR PRN 05/16/19 05/16/1920 Previous Rx's Medication Instructions Recorded Last Taken Type AtorvaSTATin [Lipitor] 20 mg PO QHS tablet 04/02/18 05/09/19 Rx Allergies Allergy/AdvReac Type Severity Reaction Status Date / Time diltiazem AdvReac Dizziness Verified 05/16/19 09:26 Heart Score - HEART Score History: Slightly suspicious EKG: Normal Age: > 65 Risk factors: 1-2 risk factors Troponin: < normal limit HEART Score: 3 ED Review of Systems ROS: Stated complaint: Other details as noted in HPI Constitutional: denies: chills, fever Eyes: denies: eye pain, eye discharge, vision change ENT: denies: ear pain, throat pain Respiratory: denies: cough, shortness of breath, wheezing Cardiovascular: chest pain. denies: palpitations Endocrine: no symptoms reported Gastrointestinal: denies: abdominal pain, nausea, diarrhea Genitourinary: denies: urgency, dysuria, discharge Musculoskeletal: denies: back pain, joint swelling, arthralgia Skin: denies: rash, lesions Neurological: denies: headache, weakness, paresthesias Psychiatric: denies: anxiety, depression Hematological/Lymphatic: denies: easy bleeding, easy bruising ED Past Medical Hx - Past Medical History Previous Medical History?: Yes Hx Hypertension: Yes Hx Heart Attack/AMI: Yes (97,78) Hx Congestive Heart Failure: No Hx Diabetes: (unsure) Hx Deep Vein Thrombosis: No Hx Pulmonary Embolism: No Hx Arthritis: Yes Hx Seizures: Yes Hx Kidney Stones: Yes Hx Asthma: No Hx COPD: Yes Hx Tuberculosis: No Hx Dementia: No Additional medical history: EPHYSEMA - Surgical History Past Surgical History?: Yes Hx Coronary Stent: No Hx Pacemaker: No Hx Internal Defibrillator: No Hx Cholecystectomy: Yes Additional Surgical History: Hyster, BACK SURGERY, LEFT SHOUDER SURGERY, RIGHT HIP REPLACEMENT - Social History Smoking Status: Former Smoker Substance Use Type: None - Medications Home Medications: Home Medications Medication Instructions Recorded Confirmed Last Taken Type Fluticasone/Vilanterol [Breo 100 inhalation PO DAILY 04/01/18 05/16/19 04/08/19 History Ellipta 100-25 Mcg INH] Valsartan 160 mg PO DAILY 04/01/18 05/16/19 05/09/19 History AtorvaSTATin [Lipitor] 20 mg PO QHS tablet 04/02/18 05/16/19 05/09/19 Rx Aspirin EC [Halfprin EC] 81 mg PO QDAY 05/16/19 05/16/19 05/09/19 History Docusate Sodium [Colace] 100 mg PO BID PRN 05/16/19 05/16/19 05/09/19 History amLODIPine [Norvasc] 5 mg PO DAILY 05/16/19 05/16/19 05/09/19 History hydroCHLOROthiazide 25 mg PO DAILY 05/16/19 05/16/19 05/09/19 History [Hydrochlorothiazide] traMADoL [Ultram 50 MG tab] 50 mg PO Q8HR PRN 05/16/19 05/16/19 05/09/19 History ED Physical Exam - General Limitations: No Limitations General appearance: alert, in no apparent distress - Head Head exam: Present: atraumatic, normocephalic - Eye Eye exam: Present: normal appearance. Absent: scleral icterus - ENT ENT exam: Present: mucous membranes moist - Neck Neck exam: Present: normal inspection. Absent: tenderness, meningismus - Respiratory Respiratory exam: Present: normal lung sounds bilaterally. Absent: respiratory distress - Cardiovascular Cardiovascular Exam: Present: regular rate, normal rhythm. Absent: systolic murmur, diastolic murmur, rubs, gallop - GI/Abdominal GI/Abdominal exam: Present: soft, normal bowel sounds. Absent: distended, tenderness, guarding, rebound, rigid - Extremities Exam Extremities exam: Present: normal inspection - Back Exam Back exam: Present: normal inspection - Neurological Exam Neurological exam: Present: alert, oriented X3, CN II-XII intact. Absent: motor sensory deficit - Psychiatric Psychiatric exam: Present: normal affect, normal mood - Skin Skin exam: Present: warm, dry, intact, normal color. Absent: rash ED Course Vital Signs 05/31/19 09:53 Temperature 97.8 F Pulse Rate 75 Respiratory 20 Rate Blood Pressure 90/57 O2 Sat by Pulse 97 Oximetry - Reevaluation(s) Reevaluation #1: No recurrent chest pain here in the emergency department. 05/31/19 15:09 Reevaluation #2: Patient informed of the substantially elevated d-dimer. We recommended strongly a CT angiogram to rule out pulmonary embolism. I personally explained to the patient the risk of from undiagnosed pulmonary embolism. Despite this she persisted and signing out AGAINST MEDICAL ADVICE. She stated that she has been cared for at [place] and wanted to see her own physicians. She was given a copy of her laboratory record. She signed out AGAINST MEDICAL ADVICE. 05/31/19 15:13 DARREL score - Darrel Score Age > 65: (1) Yes Aspirin use within the Past 7 Days: (0) No 3 or more CAD Risk Factors: (1) Yes 2 or more Angina events in past 24 hrs: (0) No Known CAD with more than 50% Stenosis: (0) No Elevated Cardiac Markers: (0) No ST Deviation Greater than 0.5mm: (0) No DARREL Score: 2 ED Medical Decision Making - Lab Data Result diagrams: 05/31/19 09:50 05/31/19 09:50 Laboratory Results - last 24 hr 05/31/19 05/31/19 05/31/19 09:50 09:50 11:36 WBC 6.4 RBC 4.49 Hgb 11.5 Hct 35.2 MCV 79 MCH 26 L MCHC 33 RDW 17.1 H Plt Count 372 Lymph % (Auto) 29.3 [place] % (Auto) 5.7 Eos % (Auto) 5.8 H Baso % (Auto) 0.4 Lymph # 1.9 [place] # 0.4 Eos # 0.4 Baso # 0.0 Seg Neutrophils % 58.8 Seg Neutrophils # 3.8 PT INR APTT D-Dimer Sodium 138 Potassium 3.5 L Chloride 100.4 Carbon Dioxide 25 Anion Gap 16 BUN 15 Creatinine 0.9 Estimated GFR > 60 BUN/Creatinine Ratio 17 Glucose 103 H Calcium 9.3 Total Bilirubin Direct Bilirubin Indirect Bilirubin AST ALT Alkaline Phosphatase Troponin T < 0.010 < 0.010 NT-Pro-B Natriuret Pep Total Protein Albumin Albumin/Globulin Ratio 05/31/19 05/31/19 11:36 11:36 WBC RBC Hgb Hct MCV MCH MCHC RDW Plt Count Lymph % (Auto) [place] % (Auto) Eos % (Auto) Baso % (Auto) Lymph # [place] # Eos # Baso # Seg Neutrophils % Seg Neutrophils # PT 12.7 INR 0.94 APTT 32.8 D-Dimer 1043.98 H Sodium Potassium Chloride Carbon Dioxide Anion Gap BUN Creatinine Estimated GFR BUN/Creatinine Ratio Glucose Calcium Total Bilirubin 0.20 Direct Bilirubin < 0.2 Indirect Bilirubin 0.0 AST 21 ALT 9 Alkaline Phosphatase 123 Troponin T NT-Pro-B Natriuret Pep 144.7 Total Protein 7.8 Albumin 3.7 L Albumin/Globulin Ratio 0.9 Critical care attestation.: If time is entered above; I have spent that time in minutes in the direct care of this critically ill patient, excluding procedure time. 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
[2019-05-31] MEDS ORDERED: SODIUM CHLORIDE 0.9% 500 ML 500 ML IV ONE (11:22)
[2019-05-31 12:07] LABS: INR 0.94 (0.87-1.13)
[2019-05-31 12:08] LABS: Partial Thromboplastin Time 32.8 Sec. (24.2-36.6)
[2019-05-31 12:15] LABS: Alanine Aminotransferase 9 units/L (7-56); Albumin 3.7 g/dL (3.9-5)
[2019-05-31 12:28] LABS: Bilirubin,Direct < 0.2 mg/dL (0-0.2)
== END 2019-05-31 14:15 | disposition left against medical advice (07) ==
LOC: ED 09:43
DX: R07.9 Chest pain, unspecified (principal); I25.709 Atherosclerosis of coronary artery bypass graft(s), unspecified, with unspecified angina pectoris; I10 Essential (primary) hypertension; I25.2 Old myocardial infarction; M19.90 Unspecified osteoarthritis, unspecified site; J43.9 Emphysema, unspecified; Z86.69 Personal history of other diseases of the nervous system and sense organs; Z79.82 Long term (current) use of aspirin; Z87.442 Personal history of urinary calculi; Z90.49 Acquired absence of other specified parts of digestive tract; Z98.890 Other specified postprocedural states; Z90.710 Acquired absence of both cervix and uterus; Z87.891 Personal history of nicotine dependence; Z79.899 Other long term (current) drug therapy; Z87.74 Personal history of (corrected) congenital malformations of heart and circulatory system
CPT/HCPCS: 36415; 71045; 80048; 80076; 83880; 84484; 85025; 85379; 85610; 85730; 93005; 93010; 93798; 99284; J7040

== ENCOUNTER 2019-09-11 08:13 | Observation (INO) | payer MEDICARE ==
[2019-09-11] MEDS ORDERED: ASPIRIN 325 MG TAB PO ONE (08:35)
[2019-09-11 09:08] LABS: Basophils # (Auto) 0.1 K/mm3 (0.0-0.1); Basophils % (Auto) 0.7 % (0.0-1.8); Eosinophils # (Auto) 0.1 K/mm3 (0.0-0.4); Eosinophils % (Auto) 1.7 % (0.0-4.3); Hematocrit 37.3 % (30.3-42.9); Hemoglobin 12.3 gm/dl (10.1-14.3); Lymphocytes # (Auto) 1.4 K/mm3 (1.2-5.4); Lymphocytes % (Auto) 17.9 % (13.4-35.0); Mean Corpuscular HGB Conc 33 % (30-34); Mean Corpuscular Volume 87 fl (79-97); Monocytes # (Auto) 0.3 K/mm3 (0.0-0.8); Monocytes % (Auto) 4.3 % (0.0-7.3); Platelet Count 309 K/mm3 (140-440); Red Cell Distribution Width 16.2 % (13.2-15.2)
--- NOTE | 2019-09-11 09:15 | XRay Report ---
CHEST 1 VIEW INDICATION / CLINICAL INFORMATION: Chest Pain. COMPARISON: None available. FINDINGS: SUPPORT DEVICES: None. HEART / MEDIASTINUM: No significant abnormality. LUNGS / PLEURA: No significant pulmonary or pleural abnormality. No pneumothorax. ADDITIONAL FINDINGS: No significant additional findings. IMPRESSION: 1. No acute findings. Signer Name: Cisco Brown MD Signed: 09/11/2019 9:10 AM Workstation Name: [id number]
[2019-09-11 09:28] LABS: BUN/Creatinine Ratio 26; Blood Urea Nitrogen 26 mg/dL (7-17); Calcium 9.3 mg/dL (8.4-10.2); Hemolysis Index 4
--- NOTE | 2019-09-11 11:11 | Emergency Department Report ---
ED Chest Pain HPI - General Chief Complaint: Chest Pain Stated Complaint: CHEST PAIN Time Seen by Provider: 09/11/19 10:59 Source: patient Mode of arrival: Wheelchair Limitations: No Limitations - History of Present Illness Initial Comments: Patient is 74 years old female with history of COPD hypertension, seizure and recent aortic valve replacement in 2019. Patient presented to the ER complaining of left-sided chest pain associated with shortness of breath. Patient stated that her symptoms started today when she went down to get some water and stated that she started having shortness of breath and chest pain after that. Patient describes his chest pain as pressure with no radiation. Patient denied any fever or cough. Patient also denied any recent contact with COVID-19 patients. MD Complaint: chest pain -: Sudden Onset: during exertion Pain Location: left chest Severity scale (0 -10): 0 Quality: heaviness - Related Data Home Medications Medication Instructions Recorded Confirmed Last Taken Valsartan 160 mg PO DAILY 04/01/18 09/11/19 09/11/19 Aspirin EC [Halfprin EC] 81 mg PO QDAY 05/16/19 09/11/19 09/11/19 Docusate Sodium [Colace] 100 mg PO BID PRN 05/16/19 09/11/19 09/10/19 amLODIPine [Norvasc] 5 mg PO DAILY 05/16/19 09/11/19 09/11/19 traMADoL [Ultram 50 MG tab] 50 mg PO Q8HR PRN 05/16/19 09/11/19 09/10/19 Previous Rx's Medication Instructions Recorded Last Taken Type AtorvaSTATin [Lipitor] 20 mg PO QHS tablet 04/02/18 09/10/19 Rx Allergies Allergy/AdvReac Type Severity Reaction Status Date / Time diltiazem AdvReac Dizziness Verified 05/16/19 09:26 Heart Score - HEART Score History: Moderately suspicious EKG: Non-specific Age: > 65 Risk factors: > 3 risk factors or hx of atherosclerotic disease Troponin: < normal limit HEART Score: 6 - Critical Actions Critical Actions: 4-6 pts:12-16.6% risk of adverse cardiac event. Should be admitted ED Review of Systems ROS: Stated complaint: CHEST PAIN Other details as noted in HPI Comment: All other systems reviewed and negative Constitutional: denies: chills, fever Respiratory: shortness of breath, SOB with exertion, SOB at rest. denies: cough, wheezing Cardiovascular: chest pain. denies: palpitations, dyspnea on exertion Gastrointestinal: denies: abdominal pain, nausea, vomiting, diarrhea, constipat ion, hematemesis, melena, hematochezia Musculoskeletal: denies: back pain Neurological: denies: headache ED Past Medical Hx - Past Medical History Previous Medical History?: Yes Hx Hypertension: Yes Hx Heart Attack/AMI: Yes (97,78) Hx Congestive Heart Failure: No Hx Diabetes: (unsure) Hx Deep Vein Thrombosis: No Hx Pulmonary Embolism: No Hx Arthritis: Yes Hx Seizures: Yes Hx Kidney Stones: Yes Hx Asthma: No Hx COPD: Yes Hx Tuberculosis: No Hx Dementia: No Additional medical history: EPHYSEMA - Surgical History Past Surgical History?: Yes Hx Coronary Stent: No Hx Pacemaker: No Hx Internal Defibrillator: No Hx Cholecystectomy: Yes Additional Surgical History: Hyster, BACK SURGERY, LEFT SHOUDER SURGERY, RIGHT HIP REPLACEMENT - Social History Smoking Status: Never Smoker Substance Use Type: None - Medications Home Medications: Home Medications Medication Instructions Recorded Confirmed Last Taken Type Valsartan 160 mg PO DAILY 04/01/18 09/11/19 09/11/19 History AtorvaSTATin [Lipitor] 20 mg PO QHS tablet 04/02/18 09/11/19 09/10/19 Rx Aspirin EC [Halfprin EC] 81 mg PO QDAY 05/16/19 09/11/19 09/11/19 History Docusate Sodium [Colace] 100 mg PO BID PRN 05/16/19 09/11/19 09/10/19 History amLODIPine [Norvasc] 5 mg PO DAILY 05/16/19 09/11/19 09/11/19 History traMADoL [Ultram 50 MG tab] 50 mg PO Q8HR PRN 05/16/19 09/11/19 09/10/19 History ED Physical Exam - General Limitations: No Limitations General appearance: alert, in no apparent distress - Head Head exam: Present: atraumatic, normocephalic, normal inspection - Eye Eye exam: Present: normal appearance, PERRL - ENT ENT exam: Present: normal exam, normal orophraynx, mucous membranes moist - Neck Neck exam: Present: normal inspection, full ROM. Absent: tenderness, meningismus, lymphadenopathy, thyromegaly - Respiratory Respiratory exam: Present: normal lung sounds bilaterally - Cardiovascular Cardiovascular Exam: Present: regular rate, normal rhythm, normal heart sounds - GI/Abdominal GI/Abdominal exam: Present: soft, normal bowel sounds. Absent: distended, tenderness, guarding, rebound, rigid, organomegaly, mass, bruit, pulsatile mass, hernia - Extremities Exam Extremities exam: Present: normal inspection, full ROM, normal capillary refill. Absent: pedal edema, calf tenderness - Back Exam Back exam: Present: normal inspection, full ROM. Absent: CVA tenderness (R), CVA tenderness (L), muscle spasm - Neurological Exam Neurological exam: Present: alert, oriented X3, CN II-XII intact, normal gait, reflexes normal. Absent: motor sensory deficit - Psychiatric Psychiatric exam: Present: normal mood - Skin Skin exam: Present: warm, intact, normal color ED Course Vital Signs 09/11/19 09/11/19 09/11/19 08:19 10:59 11:01 Temperature 98.4 F Pulse Rate 75 60 Respiratory 22 18 20 Rate Blood Pressure Blood Pressure 93/54 121/59 [Right] O2 Sat by Pulse 94 98 98 Oximetry 09/11/19 09/11/19 09/11/19 12:46 13:00 13:16 Temperature Pulse Rate Respiratory 22 21 Rate Blood Pressure 122/64 122/64 Blood Pressure [Right] O2 Sat by Pulse 97 97 94 Oximetry 09/11/19 09/11/19 09/11/19 13:24 13:30 13:45 Temperature Pulse Rate 72 63 65 Respiratory 18 21 11 L Rate Blood Pressure 128/70 130/70 Blood Pressure 140/71 [Right] O2 Sat by Pulse 97 98 97 Oximetry 09/11/19 09/11/19 09/11/19 14:00 14:16 14:20 Temperature Pulse Rate 89 88 74 Respiratory 19 20 23 Rate Blood Pressure 123/59 123/59 123/59 Blood Pressure [Right] O2 Sat by Pulse 93 96 97 Oximetry 09/11/19 09/11/19 09/11/19 14:30 14:40 14:50 Temperature Pulse Rate 84 87 83 Respiratory 16 22 21 Rate Blood Pressure 123/59 159/98 171/102 Blood Pressure [Right] O2 Sat by Pulse 95 95 95 Oximetry DARREL score - Darrel Score Age > 65: (1) Yes Aspirin use within the Past 7 Days: (0) No 3 or more CAD Risk Factors: (1) Yes 2 or more Angina events in past 24 hrs: (0) No Known CAD with more than 50% Stenosis: (0) No Elevated Cardiac Markers: (0) No ST Deviation Greater than 0.5mm: (0) No DARREL Score: 2 ED Medical Decision Making - Lab Data Result diagrams: 09/11/19 08:55 09/12/19 07:12 - EKG Data -: EKG Interpreted by Me EKG shows normal: sinus rhythm Rate: normal - EKG Data Interpretation: no acute changes - Radiology Data Radiology results: report reviewed - Medical Decision Making Patient is 74 years old female with history of COPD hypertension, seizure and recent aortic valve replacement in 2019. Patient presented to the ER complaining of left-sided chest pain associated with shortness of breath. Ranjit shea stated that her symptoms started today when she went down to get some water and stated that she started having shortness of breath and chest pain after that. Patient describes his chest pain as pressure with no radiation. Patient denied any fever or cough. Patient also denied any recent contact with COVID-19 patients. EKG showed no ST elevation. Chest x-ray is unremarkable. Labs reviewed and is unremarkable including first set of troponin. CTA chest is negative for PE. I discussed the patient with Dr. Tubbs, he agreed to admit the patient to medical service for further management. Critical care attestation.: If time is entered above; I have spent that time in minutes in the direct care of this critically ill patient, excluding procedure time. ED Disposition Clinical Impression: Chest pain Qualifiers: Chest pain type: unspecified Qualified Code(s): R07.9 - Chest pain, unspecified Disposition: - OP ADMIT IP TO THIS HOSP Is pt being admited?: Yes Condition: Stable
[2019-09-11 11:37] LABS: INR 0.96 (0.87-1.13); Partial Thromboplastin Time 27.4 Sec. (24.2-36.6)
[2019-09-11 11:42] LABS: Alanine Aminotransferase 31 units/L (7-56); Albumin 4.1 g/dL (3.9-5)
[2019-09-11 11:44] LABS: Bilirubin,Direct < 0.2 mg/dL (0-0.2)
--- NOTE | 2019-09-11 12:34 | Cat Scan Report ---
CTA CHEST WITH IV CONTRAST INDICATION: CHEST PAIN WITH DYSPNEA, ACUTE ONSET. TECHNIQUE: Axial CT images were obtained through the chest after injection of 100 mL IV contrast. 3 plane MIP re constructions were produced. All CT scans at this location are performed using CT dose reduction for ALARA by means of automated exposure control. COMPARISON: None available. FINDINGS: PULMONARY ARTERIES: No pulmonary emboli. Enlarged main pulmonary artery. AORTA AND ARTERIES: Ectatic ascending thoracic aorta as well as an ectatic aortic arch and proximal d escending thoracic aorta. The descending thoracic aorta measures about 2.6 cm in greatest diameter.. MEDIASTINUM: No mass, lymphadenopathy or other significant abnormality. The heart is normal in size w ithout a pericardial effusion. The trachea and main bronchi are patent and normal in caliber. LUNGS: No suspicious consolidation, nodule or mass. No pneumothorax or pleural effusion. ADDITIONAL FINDINGS: Patchy grossly dilated thoracic esophagus.. UPPER ABDOMEN: No acute findings. BONES: No significant osseous abnormality. IMPRESSION: 1. No CT evidence for pulmonary embolism. 2. Enlarged main pulmonary artery concerning for underlying pulmonary artery hypertension. 3. The lungs are grossly clear. 4. Patulous dilated upper and mid thoracic esophagus. Signer Name: Cisco Brown MD Signed: 09/11/2019 12:30 PM Workstation Name: [id number]
--- NOTE | 2019-09-12 07:00 | History and Physical Report ---
History of Present Illness Date of examination: 09/11/19 Date of admission: 09/11/19 12:42 Chief complaint: Chest pain since a.m. History of present illness: 74-year-old -[place] female with history of coronary artery disease status post CABG and recent aortic valve replacement, hypertension and COPD presents to the emergency room with a left-sided chest pain since a.m. Chest pain is about 8 on a scale of 1-10. Intermittent in nature. Patient went on to get some borderline thyroid shortness of breath. No radiation. No diaphoresis no palpitations. Exercise is a precipitating factor. Rest is a relieving factor. Chest pain is dull in character. Localized to the precordial region. No syncope. No recent travel. No exposure to coronavirus. No fever. - Past Medical History Previous Medical History?: Yes Hypertension: Yes Heart Attack/AMI: Yes (97,78) Diabetes: (unsure) Arthritis: Yes Seizures: Yes Kidney Stones: Yes COPD: Yes Additional medical history: EPHYSEMA - Surgical History Cholecystectomy: Yes Additional Surgical History: Hyster, BACK SURGERY, LEFT SHOUDER SURGERY, RIGHT HIP REPLACEMENT - Social History Smoking Status: Never Smoker Substance Use Type: None Family history Htn - Medications Home Medications: Home Medications Medication Instructions Recorded Confirmed Last Taken Type Valsartan 160 mg PO DAILY 04/01/18 09/11/19 09/11/19 History AtorvaSTATin [Lipitor] 20 mg PO QHS tablet 04/02/18 09/11/19 09/10/19 Rx Aspirin EC [Halfprin EC] 81 mg PO QDAY 05/16/19 09/11/19 09/11/19 History Docusate Sodium [Colace] 100 mg PO BID PRN 05/16/19 09/11/19 09/10/19 History amLODIPine [Norvasc] 5 mg PO DAILY 05/16/19 09/11/19 09/11/19 History traMADoL [Ultram 50 MG tab] 50 mg PO Q8HR PRN 05/16/19 09/11/19 09/10/19 History Review of Systems ROS: Stated complaint: CHEST PAIN Other details as noted in HPI Comment: All other systems reviewed and negative Constitutional: denies: chills, fever Respiratory: shortness of breath, SOB with exertion, SOB at rest. denies: cough, wheezing Cardiovascular: chest pain. denies: palpitations, dyspnea on exertion Gastrointestinal: denies: abdominal pain, nausea, vomiting, diarrhea, constipation, hematemesis, melena, hematochezia Musculoskeletal: denies: back pain Neurological: denies: headache Medications and Allergies Allergies Allergy/AdvReac Type Severity Reaction Status Date / Time diltiazem AdvReac Dizziness Verified 05/16/19 09:26 Home Medications Medication Instructions Recorded Confirmed Last Taken Type Valsartan 160 mg PO DAILY 04/01/18 09/11/19 09/11/19 History AtorvaSTATin [Lipitor] 20 mg PO QHS tablet 04/02/18 09/11/19 09/10/19 Rx Aspirin EC [Halfprin EC] 81 mg PO QDAY 05/16/19 09/11/19 09/11/19 History Docusate Sodium [Colace] 100 mg PO BID PRN 05/16/19 09/11/19 09/10/19 History amLODIPine [Norvasc] 5 mg PO DAILY 05/16/19 09/11/19 09/11/19 History traMADoL [Ultram 50 MG tab] 50 mg PO Q8HR PRN 05/16/19 09/11/19 09/10/19 History Exam - Constitutional Vitals: Temp Pulse Resp BP Pulse Ox 98.0 F 58 L 18 128/76 98 09/12/19 04:25 09/12/19 04:25 09/12/19 04:25 09/12/19 04:25 09/12/19 04:25 General appearance: Present: no acute distress, well-nourished - EENT Eyes: Present: PERRL ENT: hearing intact, clear oral mucosa - Neck Neck: Present: supple, normal ROM - Respiratory Respiratory effort: normal Respiratory: bilateral: CTA - Cardiovascular Heart rate: 78 Rhythm: regular Heart Sounds: Present: S1 & S2. Absent: rub, click - Extremities Extremities: pulses symmetrical, No edema Peripheral Pulses: within normal limits - Abdominal General gastrointestinal: Present: soft, non-tender, non-distended, normal bowel sounds Female genitourinary: Present: normal - Rectal Rectal Exam: deferred - Integumentary Integumentary: Present: clear, warm, dry - Musculoskeletal Musculoskeletal: gait normal, strength equal bilaterally - Psychiatric Psychiatric: appropriate mood/affect, intact judgment & insight - Neurologic Neurologic: CNII-XII intact, moves all extremities - Allied Health Allied health notes reviewed: nursing, case management HEART Score - HEART Score History: Moderately suspicious EKG: Non-specific Age: > 65 Risk factors: > 3 risk factors or hx of atherosclerotic disease Troponin: Troponin T < 0.010 ng/mL (0.00-0.029) 09/11/19 15:27 Troponin: < normal limit HEART Score: 6 - Critical Actions Critical Actions: 4-6 pts:12-16.6% risk of adverse cardiac event. Should be admitted Results - Labs CBC & Chem 7: 09/11/19 08:55 09/11/19 08:55 Labs: Laboratory Last Values WBC 7.7 K/mm3 (4.5-11.0) 09/11/19 08:55 RBC 4.30 M/mm3 (3.65-5.03) 09/11/19 08:55 Hgb 12.3 gm/dl (10.1-14.3) 09/11/19 08:55 Hct 37.3 % (30.3-42.9) 09/11/19 08:55 MCV 87 fl (79-97) 09/11/19 08:55 MCH 29 pg (28-32) 09/11/19 08:55 MCHC 33 % (30-34) 09/11/19 08:55 RDW 16.2 % (13.2-15.2) H 09/11/19 08:55 Plt Count 309 K/mm3 (140-440) 09/11/19 08:55 Lymph % (Auto) 17.9 % (13.4-35.0) 09/11/19 08:55 Turner % (Auto) 4.3 % (0.0-7.3) 09/11/19 08:55 Eos % (Auto) 1.7 % (0.0-4.3) 09/11/19 08:55 Baso % (Auto) 0.7 % (0.0-1.8) 09/11/19 08:55 Lymph # 1.4 K/mm3 (1.2-5.4) 09/11/19 08:55 Turner # 0.3 K/mm3 (0.0-0.8) 09/11/19 08:55 Eos # 0.1 K/mm3 (0.0-0.4) 09/11/19 08:55 Baso # 0.1 K/mm3 (0.0-0.1) 09/11/19 08:55 Seg Neutrophils % 75.4 % (40.0-70.0) H 09/11/19 08:55 Seg Neutrophils # 5.8 K/mm3 (1.8-7.7) 09/11/19 08:55 PT 12.6 Sec. (12.2-14.9) 09/11/19 11:12 INR 0.96 (0.87-1.13) 09/11/19 11:12 APTT 27.4 Sec. (24.2-36.6) 09/11/19 11:12 Sodium 144 mmol/L (137-145) 09/11/19 08:55 Potassium 4.4 mmol/L (3.6-5.0) 09/11/19 08:55 Chloride 104.9 mmol/L (98-107) 09/11/19 08:55 Carbon Dioxide 24 mmol/L (22-30) 09/11/19 08:55 Anion Gap 20 mmol/L 09/11/19 08:55 BUN 26 mg/dL (7-17) H 09/11/19 08:55 Creatinine 1.0 mg/dL (0.7-1.2) 09/11/19 08:55 Estimated GFR > 60 ml/min 09/11/19 08:55 BUN/Creatinine Ratio 26 % 09/11/19 08:55 Glucose 64 mg/dL (65-100) L 09/11/19 08:55 Calcium 9.3 mg/dL (8.4-10.2) 09/11/19 08:55 Total Bilirubin 0.30 mg/dL (0.1-1.2) 09/11/19 11:12 Direct Bilirubin < 0.2 mg/dL (0-0.2) 09/11/19 11:12 AST 56 units/L (5-40) H 09/11/19 11:12 ALT 31 units/L (7-56) 09/11/19 11:12 Alkaline Phosphatase 132 units/L (35-129) H 09/11/19 11:12 Troponin T < 0.010 ng/mL (0.00-0.029) 09/11/19 15:27 NT-Pro-B Natriuret Pep 100.5 pg/mL (0-900) 09/11/19 11:12 Total Protein 7.1 g/dL (6.3-8.2) 09/11/19 11:12 Albumin 4.1 g/dL (3.9-5) 09/11/19 11:12 Albumin/Globulin Ratio 1.4 % 09/11/19 11:12 Short CBC 09/11/19 Range/Units 08:55 WBC 7.7 (4.5-11.0) K/mm3 Hgb 12.3 (10.1-14.3) gm/dl Hct 37.3 (30.3-42.9) % Plt Count 309 (140-440) K/mm3 [facility] 09/11/19 08:55 Sodium 144 Potassium 4.4 Chloride 104.9 Carbon Dioxide 24 BUN 26 H Creatinine 1.0 Glucose 64 L Calcium 9.3 Cardiac Enzymes 09/11/19 09/11/19 Range/Units 08:55 15:27 Troponin T < 0.010 < 0.010 (0.00-0.029) ng/mL Liver Function 09/11/19 Range/Units 11:12 Total Bilirubin 0.30 (0.1-1.2) mg/dL Direct Bilirubin < 0.2 (0-0.2) mg/dL AST 56 H (5-40) units/L ALT 31 (7-56) units/L Alkaline Phosphatase 132 H (35-129) units/L Albumin 4.1 (3.9-5) g/dL Short CBC 09/11/19 Range/Units 08:55 WBC 7.7 (4.5-11.0) K/mm3 Hgb 12.3 (10.1-14.3) gm/dl Hct 37.3 (30.3-42.9) % Plt Count 309 (140-440) K/mm3 [facility] 09/11/19 08:55 Sodium 144 Potassium 4.4 Chloride 104.9 Carbon Dioxide 24 BUN 26 H Creatinine 1.0 Glucose 64 L Calcium 9.3 Cardiac Enzymes 09/11/19 09/11/19 Range/Units 08:55 15:27 Troponin T < 0.010 < 0.010 (0.00-0.029) ng/mL Liver Function 09/11/19 Range/Units 11:12 Total Bilirubin 0.30 (0.1-1.2) mg/dL Direct Bilirubin < 0.2 (0-0.2) mg/dL AST 56 H (5-40) units/L ALT 31 (7-56) units/L Alkaline Phosphatase 132 H (35-129) units/L Albumin 4.1 (3.9-5) g/dL - Imaging and Cardiology EKG: report reviewed (Sinus rhythm no acute ST-T wave changes) Chest x-ray: report reviewed (No acute findings) CT scan - chest: report reviewed (CTA chest no acute findings no PE) Morgan/IV: Voiding Method Toilet IV Catheter Type [Left Peripheral IV Antecubital] Assessment and Plan Advance Directives: Yes (Full code) VTE prophylaxis?: Chemical Plan of care discussed with patient/family: Yes - Patient Problems (1) Chest pain Current Visit: Yes Status: Acute Qualifiers: Chest pain type: unspecified Qualified Code(s): R07.9 - Chest pain, unspecified Plan to address problem: Chest pain rule out MA protocol Patient has a history of coronary artery disease Serial troponins Lexiscan in the morning (2) CAD (coronary artery disease) Current Visit: No Status: Chronic Qualifiers: Coronary Disease-Associated Artery/Lesion type: [place] artery [place] vs. transplanted heart: [place] heart Associated angina: with unspecified angina Qualified Code(s): I25.119 - Atherosclerotic heart disease of [place] coronary artery with unspecified angina pectoris Plan to address problem: Continue aspirin (3) Hypertension Current Visit: No Status: Chronic Qualifiers: Hypertension type: essential hypertension Qualified Code(s): I10 - Essential (primary) hypertension Plan to address problem: Continue antihypertensives (4) Hyperlipidemia Current Visit: Yes Status: Chronic Plan to address problem: Continue statins (5) DVT prophylaxis Current Visit: Yes Status: Acute (6) DVT prophylaxis Current Visit: No Status: Acute Plan to address problem: On heparin and GI prophylaxis
[2019-09-12] MEDS ORDERED: DOCUSATE SODIUM 100 MG CAP PO PRN (07:05)
[2019-09-12] MEDS ORDERED: traMADol 50 MG TAB PO PRN (07:05)
[2019-09-12] MEDS ORDERED: ONDANSETRON 4 MG/2 ML INJ IV PRN (07:06)
[2019-09-12] MEDS ORDERED: oxyCODONE /ACETAMINOPHEN 5-325MG TAB PO PRN (07:06)
[2019-09-12] MEDS ORDERED: HYDROmorphone 1 MG/1 ML INJ IV PRN (07:06)
[2019-09-12] MEDS ORDERED: ACETAMINOPHEN 325 MG TAB PO PRN (07:06)
[2019-09-12] MEDS ORDERED: METOCLOPRAMIDE 10 MG/2 ML INJ IV PRN (07:06)
[2019-09-12] MEDS ORDERED: REGADENOSON 0.4 MG/5 ML INJ IV ONE ×2 (07:49→08:00)
[2019-09-12 09:38] VITALS: BP 133/75
[2019-09-12 09:50] LABS: Alanine Aminotransferase 31 units/L (7-56); Albumin 4.1 g/dL (3.9-5); BUN/Creatinine Ratio 29; Blood Urea Nitrogen 20 mg/dL (7-17); Calcium 9.7 mg/dL (8.4-10.2); Hemolysis Index 3
[2019-09-12] MEDS ORDERED: ASPIRIN EC 81 MG TAB PO SCH (10:00)
[2019-09-12] MEDS ORDERED: HEPARIN 5,000 UNIT/1 ML VIAL SUB-Q SCH (10:00)
[2019-09-12] MEDS ORDERED: amLODIPine 5 MG TAB PO SCH (10:00)
[2019-09-12] MEDS ORDERED: VALSARTAN 160MG TAB PO SCH (10:00)
--- NOTE | 2019-09-12 11:00 | Consultation ---
History of Present Illness Consult date: 09/12/19 Consult reason: chest pain History of present illness: 74-year old woman who is admitted with chest pain associated with shortness of breath and palpitations. Patient reports symptoms began walking up the stairs. She denies syncope. Chest CTA reports low probability for PE and a chest x-ray is negative. 12 lead ECG is sinus rhythm, no acute ischemic changes. Cardiac consultation requested. 8 months ago she underwent replacement of the ascending aorta at [facility]. At the time of surgery, she did not require coronary bypass surgery. Her co-morbidities include a seizure disorder, COPD, Hypertension and Hyperlipidema. Today, patient reports she feels better. She denies chest pain, shortness of breath and palpitations. No arrhythmias seen on telemetry monitoring. Medications and Allergies Allergies Allergy/AdvReac Type Severity Reaction Status Date / Time diltiazem AdvReac Dizziness Verified 05/16/19 09:26 Home Medications Medication Instructions Recorded Confirmed Last Taken Type Valsartan 160 mg PO DAILY 04/01/18 09/11/19 09/11/19 History AtorvaSTATin [Lipitor] 20 mg PO QHS tablet 04/02/18 09/11/19 09/10/19 Rx Aspirin EC [Halfprin EC] 81 mg PO QDAY 05/16/19 09/11/19 09/11/19 History Docusate Sodium [Colace] 100 mg PO BID PRN 05/16/19 09/11/19 09/10/19 History amLODIPine [Norvasc] 5 mg PO DAILY 05/16/19 09/11/19 09/11/19 History traMADoL [Ultram 50 MG tab] 50 mg PO Q8HR PRN 05/16/19 09/11/19 09/10/19 History Active Meds: Active Medications Acetaminophen (Tylenol) 650 mg PO Q4H PRN PRN Reason: Pain MILD(1-3)/Fever >100.5/DEL CID Amlodipine Besylate (Amlodipine) 5 mg PO DAILY [facility] Last Admin: 09/12/19 09:37 Dose: 5 mg Documented by: Aspirin (Halfprin Ec) 81 mg PO QDAY [facility] Last Admin: 09/12/19 09:37 Dose: 81 mg Documented by: Atorvastatin Calcium (Lipitor) 20 mg PO QHS ASHLEY Docusate Sodium (Colace) 100 mg PO BID PRN PRN Reason: CONSTIPATION Heparin Sodium (Porcine) (Heparin) 5,000 unit SUB-Q Q12HR [facility] Last Admin: 09/12/19 09:37 Dose: 5,000 unit Documented by: Hydromorphone HCl (Dilaudid) 0.5 mg IV Q3H PRN PRN Reason: Pain , Severe (7-10) Metoclopramide HCl (Reglan) 10 mg IV Q6H PRN PRN Reason: Nausea And Vomiting Ondansetron HCl (Zofran) 4 mg IV Q8H PRN PRN Reason: Nausea And Vomiting Oxycodone/Acetaminophen (Percocet 5/325) 1 tab PO Q6H PRN PRN Reason: Pain, Moderate (4-6) Sodium Chloride (Sodium Chloride Flush Syringe 10 Ml) 10 ml IV BID [facility] Last Admin: 09/12/19 09:37 Dose: 10 ml Documented by: Sodium Chloride (Sodium Chloride Flush Syringe 10 Ml) 10 ml IV PRN PRN PRN Reason: LINE FLUSH Tramadol HCl (Ultram) 50 mg PO Q8HR PRN PRN Reason: Pain , Severe (7-10) Valsartan (Diovan) 160 mg PO DAILY [facility] Last Admin: 09/12/19 09:36 Dose: 160 mg Documented by: Physical Examination Vital Signs Temp Pulse Resp BP Pulse Ox 98.4 F 75 22 93/54 94 09/11/19 08:19 09/11/19 08:19 09/11/19 08:19 09/11/19 08:19 09/11/19 08:19 General appearance: no acute distress HEENT: Positive: PERRL Neck: Positive: trachea midline Cardiac: Positive: Reg Rate and Rhythm Lungs: Positive: Decreased Breath Sounds Neuro: Positive: Grossly Intact Extremities: Absent: edema Results 09/11/19 08:55 09/12/19 07:12 Cardiac Enzymes 09/11/19 09/12/19 Range/Units 11:12 07:12 AST 56 H 43 H (5-40) units/L Coagulation 09/11/19 Range/Units 11:12 PT 12.6 (12.2-14.9) Sec. INR 0.96 (0.87-1.13) APTT 27.4 (24.2-36.6) Sec. Comprehensive Metabolic Panel 09/11/19 09/12/19 Range/Units 11:12 07:12 Sodium 143 (137-145) mmol/L Potassium 3.5 L D (3.6-5.0) mmol/L Chloride 103.6 (98-107) mmol/L Carbon Dioxide 24 (22-30) mmol/L BUN 20 H (7-17) mg/dL Creatinine 0.7 (0.7-1.2) mg/dL Glucose 103 H (65-100) mg/dL Calcium 9.7 (8.4-10.2) mg/dL Direct Bilirubin < 0.2 (0-0.2) mg/dL AST 56 H 43 H (5-40) units/L ALT 31 31 (7-56) units/L Alkaline Phosphatase 132 H 138 H (35-129) units/L Total Protein 7.1 7.4 (6.3-8.2) g/dL Albumin 4.1 4.1 (3.9-5) g/dL Assessment and Plan - Patient Problems (1) Chest pain Current Visit: Yes Status: Acute Qualifiers: Qualified Code(s): R07.9 - Chest pain, unspecified Plan to address problem: Atypical chest pain [facility] 11/2018: non-obstructive coronary disease recommended for medical therapy. LVEF 60%. Continue medical therapy and risk factor modifications. No cardiac workup indicated. Stable cardiac ellis for discharge. Patient will follow up with Dr Jeffries in 3-5 days.
[2019-09-12] MEDS ORDERED: POTASSIUM CHLORIDE ER 20 MEQ TAB PO ONE (12:00)
--- NOTE | 2019-09-12 12:16 | Discharge Summary ---
Providers - Providers Date of Admission: 09/11/19 12:42 Date of discharge: 09/12/19 Attending physician: WILL WOODARD 09/12/19 07:14 Consult to Physician [CONS] Routine Comment: Consulting Provider: JENNIFER MORALES Physician Instructions: Reason For Exam: chest pain Primary care physician: SANE NURSE Hospitalization Reason for admission: Chest pain and shortness of breath Condition: Stable Hospital course: Patient was admitted under observation status for shortness of breath and chest pain. IL was ruled out. Cardiology note reviewed No further recommendations from cardiology and cleared for discharge follow-up Patient is medically stable for discharge Disposition: DC-01 TO HOME OR SELFCARE Time spent for discharge: 36 min Core Measure Documentation - Palliative Care Palliative Care/ Comfort Measures: Not Applicable - Core Measures Any of the following diagnoses?: none Exam - Constitutional Vitals: Temp Pulse Resp BP Pulse Ox 97.6 F 66 20 133/75 97 09/12/19 07:40 09/12/19 09:37 09/12/19 10:00 09/12/19 09:37 09/12/19 07:40 General appearance: Present: no acute distress - EENT Eyes: Present: PERRL, EOM intact ENT: hearing intact, clear oral mucosa - Neck Neck: Present: supple, normal ROM. Absent: masses or JVD - Respiratory Respiratory effort: normal Respiratory: bilateral: CTA - Cardiovascular Rhythm: regular Heart Sounds: Present: S1 & S2 - Extremities Extremities: No edema Peripheral Pulses: within normal limits - Abdominal General gastrointestinal: Present: soft, non-tender Female genitourinary: Present: deferred - Rectal Rectal Exam: deferred - Integumentary Integumentary: Present: clear - Musculoskeletal Musculoskeletal: strength equal bilaterally - Psychiatric Psychiatric: appropriate mood/affect - Neurologic Neurologic: no focal deficits Plan Activity: no restrictions Weight Bearing Status: Full Weight Bearing Diet: regular, low fat, low cholesterol Follow up with: PRIMARY CARE, [Primary Care Provider] - 3-5 Days
== END 2019-09-12 14:12 | disposition home or self-care (01) ==
LOC: ED 08:13 → 4A 12:42 → INTOOBSV 12:42
PROVIDERS: ADMIT Internal Medicine; ATTEND Internal Medicine
DX: R07.89 Other chest pain (principal); I25.119 Atherosclerotic heart disease of native coronary artery with unspecified angina pectoris; I10 Essential (primary) hypertension; E78.5 Hyperlipidemia, unspecified; I25.2 Old myocardial infarction; M19.90 Unspecified osteoarthritis, unspecified site; J43.9 Emphysema, unspecified; Z95.1 Presence of aortocoronary bypass graft; Z95.4 Presence of other heart-valve replacement; Z90.49 Acquired absence of other specified parts of digestive tract; Z79.82 Long term (current) use of aspirin; Z79.899 Other long term (current) drug therapy; Z88.8 Allergy status to other drugs, medicaments and biological substances; Z71.6 Tobacco abuse counseling
CPT/HCPCS: 36415; 71045; 71275; 80048; 80053; 80076; 83036; 83880; 84484; 85025; 85610; 85730; 93005; 96372; 99285; 99406; G0378; J1644; J2785; Q9967

== ENCOUNTER 2020-07-06 16:45 | Emergency (ER) | payer MEDICARE ==
--- NOTE | 2020-07-06 18:14 | Emergency Department Report ---
HPI - General Time Seen by Provider: 07/06/20 17:57 - HPI HPI: This is a 74-year-old -[place] female presents to the emergency department via EMS from home after she had an episode in which she passed out. Patient says that she got up from a nap and went out to her front porch when "everything went black." The patient started falling down and says that she was able to reach out and grab onto a rail. It sounds like she was able to get herself to the ground gently but then she says that she passed out for a short, but unknown, amount of time. She estimates that she was unconscious for about 5 to 10 minutes and says "the next thing I remember my grandson was pulling me into the house." At the time of my examination the patient says that she feels "great" and has no physical complaints at this time. She denies any headache, vision change, slurred speech, numbness or paresthesias, back or neck pain, chest pain, shortness of breath. She also denies having any of these symptoms prior to passing out. She has a past medical history significant for hypertens ion, COPD not oxygen dependent, previous descending thoracic aortic aneurysm status post repair, coronary artery disease, "leaky heart valve", and seizures. Her primary care physician is Dr. Munoz and her family partner is Dr Jeffries. ED Past Medical Hx - Past Medical History Hx Hypertension: Yes Hx Heart Attack/AMI: Yes (97,78) Hx Congestive Heart Failure: No Hx Diabetes: (unsure) Hx Deep Vein Thrombosis: No Hx Pulmonary Embolism: No Hx Arthritis: Yes Hx Seizures: Yes Hx Kidney Stones: Yes Hx Asthma: No Hx COPD: Yes Hx Tuberculosis: No Hx Dementia: No Additional medical history: EPHYSEMA - Surgical History Hx Coronary Stent: No Hx Pacemaker: No Hx Internal Defibrillator: No Hx Cholecystectomy: Yes Additional Surgical History: Hyster, BACK SURGERY, LEFT SHOUDER SURGERY, RIGHT HIP REPLACEMENT - Social History Smoking Status: Never Smoker Substance Use Type: None - Medications Home Medications: Home Medications Medication Instructions Recorded Confirmed Last Taken Type Valsartan 160 mg PO DAILY 04/01/18 09/11/19 09/11/19 History AtorvaSTATin [Lipitor] 20 mg PO QHS tablet 04/02/18 09/11/19 09/10/19 Rx Aspirin EC [Halfprin EC] 81 mg PO QDAY 05/16/19 09/11/19 09/11/19 History amLODIPine 5 mg PO DAILY 05/16/19 09/11/19 09/11/19 History traMADoL [Ultram 50 MG tab] 50 mg PO Q8HR PRN 05/16/19 09/11/19 09/10/19 History Acetaminophen [Acetaminophen TAB] 650 mg PO Q4H PRN tablet 09/12/19 Unknown Rx ED Review of Systems ROS: Stated complaint: SYNCOPAL EPISODE Other details as noted in HPI Comment: All other systems reviewed and negative Constitutional: denies: chills, fever Eyes: denies: eye pain, vision change ENT: denies: ear pain, throat pain Respiratory: denies: cough, shortness of breath Cardiovascular: syncope. denies: chest pain Gastrointestinal: denies: abdominal pain, vomiting Genitourinary: denies: dysuria, discharge Musculoskeletal: denies: back pain, arthralgia Skin: denies: rash, lesions Neurological: denies: headache, weakness Physical Exam - Physical Exam Physical Exam: GENERAL: The patient is well-developed well-nourished. HENT: Normocephalic. Atraumatic. Patient has moist mucous membranes. EYES: Extraocular motions are intact. Pupils equal reactive to light bilaterally. No nystagmus. NECK: Supple. Trachea is midline. CHEST/LUNGS: Clear to auscultation. There is no respiratory distress noted. HEART/CARDIOVASCULAR: Regular. There is no tachycardia. There is no murmur. ABDOMEN: Abdomen is soft, nontender. Patient has normal bowel sounds. There is no abdominal distention. SKIN: Skin is warm and dry. NEURO: The patient is awake, alert, and oriented. The patient is cooperative. The patient has no focal neurologic deficits. Normal speech. Cranial nerves II through XII grossly intact. No pronator drift or dysmetria. MUSCULOSKELETAL: There is no tenderness or deformity. There is no limitation range of motion. ED Medical Decision Making - Lab Data Result diagrams: 07/06/20 18:10 07/06/20 18:10 Lab Results 07/06/20 07/06/20 07/06/20 Range/Units 18:10 18:10 18:10 WBC 8.1 (4.5-11.0) K/mm3 RBC 4.27 (3.65-5.03) M/mm3 Hgb 11.4 (10.1-14.3) gm/dl Hct 35.7 (30.3-42.9) % MCV 84 (79-97) fl MCH 27 L (28-32) pg MCHC 32 (30-34) % RDW 15.6 H (13.2-15.2) % Plt Count 434 (140-440) K/mm3 Lymph % (Auto) 26.6 (13.4-35.0) % [place] % (Auto) 6.9 (0.0-7.3) % Eos % (Auto) 5.4 H (0.0-4.3) % Baso % (Auto) 0.4 (0.0-1.8) % Lymph # (Auto) 2.2 (1.2-5.4) K/mm3 [place] # (Auto) 0.6 (0.0-0.8) K/mm3 Eos # (Auto) 0.4 (0.0-0.4) K/mm3 Baso # (Auto) 0.0 (0.0-0.1) K/mm3 Seg Neutrophils % 60.7 (40.0-70.0) % Seg Neutrophils # 4.9 (1.8-7.7) K/mm3 PT 11.1 L (12.2-14.9) Sec. INR 0.81 L (0.87-1.13) Sodium 141 (137-145) mmol/L Potassium 4.0 (3.6-5.0) mmol/L Chloride 106.7 (98-107) mmol/L Carbon Dioxide 23 (22-30) mmol/L Anion Gap 15 mmol/L BUN 17 (7-17) mg/dL Creatinine 1.0 (0.6-1.2) mg/dL Estimated GFR > 60 ml/min BUN/Creatinine Ratio 17 % Glucose 99 (65-100) mg/dL Calcium 8.7 (8.4-10.2) mg/dL Total Bilirubin 0.20 (0.1-1.2) mg/dL AST 19 (5-40) units/L ALT 15 (7-56) units/L Alkaline Phosphatase 175 H (35-129) units/L Troponin T < 0.010 (0.00-0.029) ng/mL Total Protein 7.3 (6.3-8.2) g/dL Albumin 3.9 (3.9-5) g/dL Albumin/Globulin Ratio 1.1 % TSH (0.270-4.200) mlU/mL Free T4 (0.76-1.46) ng/dL Urine Color (Yellow) Urine Turbidity (Clear) Urine pH (5.0-7.0) Ur Specific [place] (1.003-1.030) Urine Protein (Negative) mg/dL Urine Glucose (UA) (Negative) mg/dL Urine Ketones (Negative) mg/dL Urine Blood (Negative) Urine Nitrite (Negative) Urine Bilirubin (Negative) Urine Urobilinogen (<2.0) mg/dL Ur Leukocyte Esterase (Negative) Urine WBC (Auto) (0.0-6.0) /HPF Urine RBC (Auto) (0.0-6.0) /HPF U Epithel Cells (Auto) (0-13.0) /HPF Urine Mucus /HPF Urine Yeast (Budding) /HPF 07/06/20 07/06/20 07/06/20 Range/Units 18:10 19:22 19:50 WBC (4.5-11.0) K/mm3 RBC (3.65-5.03) M/mm3 Hgb (10.1-14.3) gm/dl Hct (30.3-42.9) % MCV (79-97) fl MCH (28-32) pg MCHC (30-34) % RDW (13.2-15.2) % Plt Count (140-440) K/mm3 Lymph % (Auto) (13.4-35.0) % [place] % (Auto) (0.0-7.3) % Eos % (Auto) (0.0-4.3) % Baso % (Auto) (0.0-1.8) % Lymph # (Auto) (1.2-5.4) K/mm3 [place] # (Auto) (0.0-0.8) K/mm3 Eos # (Auto) (0.0-0.4) K/mm3 Baso # (Auto) (0.0-0.1) K/mm3 Seg Neutrophils % (40.0-70.0) % Seg Neutrophils # (1.8-7.7) K/mm3 PT (12.2-14.9) Sec. INR (0.87-1.13) Sodium (137-145) mmol/L Potassium (3.6-5.0) mmol/L Chloride (98-107) mmol/L Carbon Dioxide (22-30) mmol/L Anion Gap mmol/L BUN (7-17) mg/dL Creatinine (0.6-1.2) mg/dL Estimated GFR ml/min BUN/Creatinine Ratio % Glucose (65-100) mg/dL Calcium (8.4-10.2) mg/dL Total Bilirubin (0.1-1.2) mg/dL AST (5-40) units/L ALT (7-56) units/L Alkaline Phosphatase (35-129) units/L Troponin T (0.00-0.029) ng/mL Total Protein (6.3-8.2) g/dL Albumin (3.9-5) g/dL Albumin/Globulin Ratio % TSH 6.580 H (0.270-4.200) mlU/mL Free T4 1.01 (0.76-1.46) ng/dL Urine Color Yellow (Yellow) Urine Turbidity Slightly-cloudy (Clear) Urine pH 5.0 (5.0-7.0) Ur Specific [place] 1.012 (1.003-1.030) Urine Protein <15 mg/dl (Negative) mg/dL Urine Glucose (UA) Neg (Negative) mg/dL Urine Ketones Neg (Negative) mg/dL Urine Blood Neg (Negative) Urine Nitrite Neg (Negative) Urine Bilirubin Neg (Negative) Urine Urobilinogen < 2.0 (<2.0) mg/dL Ur Leukocyte Esterase Lg (Negative) Urine WBC (Auto) 8.0 H (0.0-6.0) /HPF Urine RBC (Auto) 4.0 (0.0-6.0) /HPF U Epithel Cells (Auto) 3.0 (0-13.0) /HPF Urine Mucus Few /HPF Urine Yeast (Budding) 1+ /HPF - EKG Data -: EKG Interpreted by Ne EKG shows normal: sinus rhythm, axis, intervals, QRS complexes (Q waves to the anteroseptal leads), ST-T waves Rate: normal - EKG Data When compared to previous EKG there are: no significant change Interpretation: unchanged when compared t (09/11/19) - Radiology Data Radiology results: image reviewed interpreted by me: Chest x-ray does not show any acute process. There are no pleural effusions, obvious pneumonia and there is no pneumothorax. No significant cardiomegaly. - Medical Decision Making This patient presents to the emergency department after having a syncopal episode prior to presentation. Since being in the emergency department she has been awake, alert, oriented and is in no acute distress. The patient says that she feels "great." On examination she does not have any focal, motor or sensory deficits and her cranial nerves are intact. EKG did not have any morphology consistent with ST elevation myocardial infarct ion or any dysrhythmia. The patient had a chest x-ray done that did not show any pneumonia, pleural effusions, pneumothorax, or any other acute process. The patient's labs have been unremarkable including CBC, metabolic panel, negative troponin, coags, and urinalysis did not show any significant urinary tract infection. The patient did have an elevated TSH level concerning for possible hypothyroidism, however she had a normal free T4. Vital signs have been reassuring throughout her ED course including being afebrile. Patient is low on the Wells score criteria. She has not been complaining of any chest pain, back pain or shortness of breath, nor any lower extremity swelling. As the patient had a single syncopal episode, currently feels well, does not have any focal, motor or sensory deficits, without the complaint of headache, I did not feel that CT imaging of the head was necessary at this time. The patient was reevaluated multiple times over multiple hours and there has been no further syncopal episodes and the patient has remained stable throughout her ED course. She was seen ambulatory in the emergency department and both appears and feels stable. For all these reasons patient appears safe for discharge home at this time. She has good outpatient follow-up with primary care. She has been instructed to go to the closest emergency department or call 911 with any fur ther syncopal episodes, development of chest pain or shortness of breath, development of any strokelike symptoms, or with any acute distress. Critical Care Time: No Critical care attestation.: If time is entered above; I have spent that time in minutes in the direct care of this critically ill patient, excluding procedure time. ED Disposition Clinical Impression: Syncope Qualifiers: Syncope type: unspecified Qualified Code(s): R55 - Syncope and collapse Disposition: DC-01 TO HOME OR SELFCARE Is pt being admited?: No Condition: Stable Instructions: Syncope, Syncope (ED) Additional Instructions: Please follow-up with your primary care physician in the next few days. Return to the closest emergency department, or call 911, with any further episodes of passing out, feeling like you may pass out, development of chest justin n or shortness of breath, development of any strokelike symptoms, new or concerning symptoms not addressed during this emergency department visit, or if any acute distress. Referrals: ELEANOR MUNOZ MD [Primary Care Provider] - 2-3 Days Time of Disposition: 20:59
--- NOTE | 2020-07-06 18:32 | XRay Report ---
CHEST 1 VIEW 07/06/2020 5:23 PM INDICATION / CLINICAL INFORMATION: Syncope. COMPARISON: 09/11/2019. FINDINGS: SUPPORT DEVICES: Dorsal column stimulator leads overlying the mid thoracic spine. HEART / MEDIASTINUM: Prior median sternotomy. Normal heart size and pulmonary vasculature. No evidenc e of aortic aneurysm. LUNGS / PLEURA: No significant pulmonary or pleural abnormality. No pneumothorax. ADDITIONAL FINDINGS: Left shoulder prosthesis. Moderate degenerative changes involving the right shou lder. IMPRESSION: No acute abnormality or significant change. Signer Name: Jose Luis Arshad MD Signed: 07/06/2020 6:28 PM Workstation Name: [id number]
[2020-07-06 18:38] LABS: Basophils % (Auto) 0.4 % (0.0-1.8); Eosinophils # (Auto) 0.4 K/mm3 (0.0-0.4); Eosinophils % (Auto) 5.4 % (0.0-4.3); Hematocrit 35.7 % (30.3-42.9); Hemoglobin 11.4 gm/dl (10.1-14.3); Lymphocytes # (Auto) 2.2 K/mm3 (1.2-5.4); Lymphocytes % (Auto) 26.6 % (13.4-35.0); Mean Corpuscular HGB Conc 32 % (30-34); Mean Corpuscular Volume 84 fl (79-97); Monocytes # (Auto) 0.6 K/mm3 (0.0-0.8); Monocytes % (Auto) 6.9 % (0.0-7.3); Platelet Count 434 K/mm3 (140-440); Red Blood Count 4.27 M/mm3 (3.65-5.03); Red Cell Distribution Width 15.6 % (13.2-15.2)
[2020-07-06 18:47] LABS: INR 0.81 (0.87-1.13)
[2020-07-06 18:59] LABS: Alanine Aminotransferase 15 units/L (7-56); Albumin 3.9 g/dL (3.9-5); BUN/Creatinine Ratio 17; Blood Urea Nitrogen 17 mg/dL (7-17); Calcium 8.7 mg/dL (8.4-10.2); Hemolysis Index 2
[2020-07-06 20:06] LABS: Bilirubin,Urine NEG (Negative); Blood,Urine NEG (Negative); Color,Urine Yellow (Yellow); Mucus,Urine FEW /HPF; Protein,Urine <15 mg/dL mg/dL (Negative); Urobilinogen,Urine < 2.0 mg/dL (<2.0)
[2020-07-06 20:49] VITALS: BP 108/75
--- NOTE | 2020-07-07 10:05 | Electrocardiograph Report ---
[facility] Test Date: 2020-07-06 Test Time: 19:55:14 Pat Name: VERONICA MCCOLLUM Department: Room: Gender: F Admission Liaison: WILFREDO : 1945 Requested By: LESTER PATEL Order Number: [id number] Reading MD: John Izaguirre Measurements Intervals [place] Rate: 80 P: 90 DC: 179 QRS: 32 QRSD: 75 T: 90 QT: 422 QTc: 487 Interpretive Statements Sinus rhythm Possible anteroseptal infarct, age indeterminate No previous ECG available for comparison Electronically Signed On 07-07-2020 10:05:10 EDT by John Izaguirre
== END 2020-07-06 21:16 | disposition home or self-care (01) ==
LOC: ED 16:45
DX: R55 Syncope and collapse (principal); I10 Essential (primary) hypertension; I25.2 Old myocardial infarction; M19.91 Primary osteoarthritis, unspecified site; R56.9 Unspecified convulsions; J44.9 Chronic obstructive pulmonary disease, unspecified; Z98.890 Other specified postprocedural states; Z79.899 Other long term (current) drug therapy; Z88.8 Allergy status to other drugs, medicaments and biological substances
CPT/HCPCS: 36415; 71045; 80053; 81001; 84439; 84443; 84484; 85025; 85610; 93005

== ENCOUNTER 2020-09-15 12:52 | Emergency (ER) | payer MEDICARE ==
[2020-09-15] MEDS ORDERED: MAGNESIUM SULFATE 2 GM/50 ML BAG IV ONE (13:02)
[2020-09-15] MEDS ORDERED: ALBUTEROL 2.5 MG/3 ML NEBU IH ONE (13:02)
[2020-09-15] MEDS ORDERED: methylPREDNISolone Sod Succinate 125 MG/2 ML INJ IV ONE (13:02)
[2020-09-15] MEDS ORDERED: IPRATROPIUM 0.02% NEBU 2.5 ML IH ONE (13:02)
[2020-09-15] MEDS ORDERED: levoFLOXacin 500 MG TAB PO ONE (13:03)
--- NOTE | 2020-09-15 13:07 | Emergency Department Report ---
ED Shortness of Breath HPI - General Stated Complaint: ISA Time Seen by Provider: 09/15/20 13:02 - History of Present Illness Initial Comments: Chief complaint: Shortness of breath and cough HPI: This is an 75-year-old female with history of COPD, hypertension, CAD, seizure disorder, liver disease, alcohol abuse, dyslipidemia who presents with shortness of breath, cough wheezing for 1 week. Green sputum. Patient denies fever, chest pain, body aches, abdominal pain. She denies loss of taste or smell. Patient self treated with albuterol prior to arrival via EMS. Oxygen saturation 93% room air according to EMS. MD Complaint: shortness of breath, cough -: Gradual, week(s) (1 week) Severity: moderate Consistency: constant Improves With: nothing Worsens With: nothing Known History Of: COPD Associated Symptoms: cough, sputum production - Related Data Home Medications Medication Instructions Recorded Confirmed Last Taken Valsartan 160 mg PO DAILY 04/01/18 09/11/19 09/11/19 Aspirin EC [Halfprin EC] 81 mg PO QDAY 05/16/19 09/11/19 09/11/19 amLODIPine 5 mg PO DAILY 05/16/19 09/11/19 09/11/19 traMADoL [Ultram 50 MG tab] 50 mg PO Q8HR PRN 05/16/19 09/11/19 09/10/19 Previous Rx's Medication Instructions Recorded Last Taken Type AtorvaSTATin [Lipitor] 20 mg PO QHS tablet 04/02/18 09/10/19 Rx Acetaminophen [Acetaminophen TAB] 650 mg PO Q4H PRN tablet 09/12/19 Unknown Rx ALBUTEROL NEB's [Proventil 0.083% 2.5 mg IH TID PRN #1 box 09/15/20 Unknown Rx NEBS] Prednisone [predniSONE 10 mg 10 mg PO .TAPER #1 tab.ds.pk 09/15/20 Unknown Rx (6-Day Pack, 21 Tabs)] levoFLOXacin [Levaquin TAB] 500 mg PO QDAY 5 Days #5 tablet 09/15/20 Unknown Rx Allergies Allergy/AdvReac Type Severity Reaction Status Date / Time diltiazem AdvReac Dizziness Verified 05/16/19 09:26 ED Review of Systems ROS: Stated complaint: ISA Other details as noted in HPI Comment: All other systems reviewed and negative Constitutional: denies: fever, malaise Respiratory: cough, shortness of breath, wheezing Cardiovascular: denies: chest pain Gastrointestinal: denies: abdominal pain, nausea, vomiting ED Past Medical Hx - Past Medical History Previous Medical History?: Yes Hx Hypertension: Yes Hx Heart Attack/AMI: Yes (97,78) Hx Congestive Heart Failure: No Hx Diabetes: (unsure) Hx Deep Vein Thrombosis: No Hx Pulmonary Embolism: No Hx Arthritis: Yes Hx Seizures: Yes Hx Kidney Stones: Yes Hx Asthma: No Hx COPD: Yes Hx Tuberculosis: No Hx Dementia: No Additional medical history: EPHYSEMA - Surgical History Past Surgical History?: Yes Hx Coronary Stent: No Hx Pacemaker: No Hx Internal Defibrillator: No Hx Cholecystectomy: Yes Additional Surgical History: Hyster, BACK SURGERY, LEFT SHOUDER SURGERY, RIGHT HIP REPLACEMENT - Family History Family history: hypertension - Social History Smoking Status: Former Smoker Substance Use Type: Alcohol - Medications Home Medications: Home Medications Medication Instructions Recorded Confirmed Last Taken Type Valsartan 160 mg PO DAILY 04/01/18 09/11/19 09/11/19 History AtorvaSTATin [Lipitor] 20 mg PO QHS tablet 04/02/18 09/11/19 09/10/19 Rx Aspirin EC [Halfprin EC] 81 mg PO QDAY 05/16/19 09/11/19 09/11/19 History amLODIPine 5 mg PO DAILY 05/16/19 09/11/19 09/11/19 History traMADoL [Ultram 50 MG tab] 50 mg PO Q8HR PRN 05/16/19 09/11/19 09/10/19 History Acetaminophen [Acetaminophen TAB] 650 mg PO Q4H PRN tablet 09/12/19 Unknown Rx ALBUTEROL NEB's [Proventil 0.083% 2.5 mg IH TID PRN #1 box 09/15/20 Unknown Rx NEBS] Prednisone [predniSONE 10 mg 10 mg PO .TAPER #1 tab.ds.pk 09/15/20 Unknown Rx (6-Day Pack, 21 Tabs)] levoFLOXacin [Levaquin TAB] 500 mg PO QDAY 5 Days #5 tablet 09/15/20 Unknown Rx ED Physical Exam - General General appearance: alert, other (Moderate work of breathing speaking full word sentences with effort) - Head Head exam: Present: atraumatic, normocephalic - Eye Eye exam: Present: normal appearance - ENT ENT exam: Present: mucous membranes moist - Neck Neck exam: Present: normal inspection, full ROM - Respiratory Respiratory exam: Present: wheezes, accessory muscle use, prolonged expiratory. Absent: rhonchi, stridor - Cardiovascular Cardiovascular Exam: Present: regular rate, normal rhythm, normal heart sounds. Absent: systolic murmur, diastolic murmur, rubs, gallop - GI/Abdominal GI/Abdominal exam: Present: soft, normal bowel sounds. Absent: distended, tenderness, guarding, rebound - Extremities Exam Extremities exam: Present: normal inspection - Neurological Exam Neurological exam: Present: alert, oriented X3 - Psychiatric Psychiatric exam: Present: normal affect, normal mood - Skin Skin exam: Present: warm, dry, intact, normal color. Absent: rash ED Course Vital Signs 09/15/20 09/15/20 13:30 13:38 Temperature 97.9 F Pulse Rate 89 Respiratory 25 H Rate Blood Pressure 101/62 O2 Sat by Pulse 100 Oximetry - Reevaluation(s) Reevaluation #1: 09/15/20 14:36 Patient laying on left side comfortably speaking for sentences. Good air movement with mild expiratory wheezes. Patient feels well enough to be discharged. ED Medical Decision Making - Lab Data Result diagrams: 09/15/20 13:44 09/15/20 13:44 - Radiology Data Radiology results: report reviewed Patient Name: VERONICA MCCOLLUM Gender: Female Date of : 1945 Referring Provider: MENDOZA MARTIN Organization: [facility] Accession Number: [id number] Requested Date: September 15, 2020 13:03 Report Status: Final Requested Procedure: 1 Procedure Description: XR chest 1V ap Modality: XR Findings Reporting MD: Migue Calzada Dictation Time: September 15, 2020 12:18 Culturist: Not available Window Glass Installer Date: CHEST 1 VIEW INDICATION: Dyspnea. COMPARISON: 07/06/2020 FINDINGS: Support devices: Stable positioning of the thoracic neurostimulator. Heart: Within normal limits. Lungs/Pleura: No acute air space or interstitial disease. Additional findings: Stable appearance of the left shoulder arthroplasty. IMPRESSION: No acute cardiopulmonary process or change since 07/06/2020. Signer Name: Migue Calzada Jr, MD Signed: 09/15/2020 12:18 PM Workstation Name: [id number] - Medical Decision Making Acute COPD exacerbation: Patient rapidly improved with treatment which include IV magnesium, DuoNeb, IV Solu-Medrol and oral antibiotic. I will prescribe Levaquin and prednisone taper as well as albuterol nebulizer solution. CBC chemistry with normal limits. Chest radiograph without acute radiographic abnormality Critical care attestation.: If time is entered above; I have spent that time in minutes in the direct care of this critically ill patient, excluding procedure time. ED Disposition Clinical Impression: COPD with exacerbation Disposition: DC- TO HOME OR SELFCARE Is pt being admited?: No Does the pt Need Aspirin: No Condition: Stable Instructions: Chronic Obstructive Pulmonary Disease, [id number], Chronic Obstructive Pulmonary Disease (ED) Prescriptions: levoFLOXacin [Levaquin TAB] 500 mg PO QDAY 5 Days #5 tablet Prednisone [predniSONE 10 mg (6-Day Pack, 21 Tabs)] 10 mg PO .TAPER #1 tab.ds.pk ALBUTEROL NEB's [Proventil 0.083% NEBS] 2.5 mg IH TID PRN #1 box PRN Reason: Wheezing Referrals: JERARDO AZEVEDO [Other] - 3-5 Days
--- NOTE | 2020-09-15 13:23 | XRay Report ---
CHEST 1 VIEW INDICATION: Dyspnea. COMPARISON: 07/06/2020 FINDINGS: Support devices: Stable positioning of the thoracic neurostimulator. Heart: Within normal limits. Lungs/Pleura: No acute air space or interstitial disease. Additional findings: Stable appearance of the left shoulder arthroplasty. IMPRESSION: No acute cardiopulmonary process or change since 07/06/2020. Signer Name: Migue Calzada Jr, MD Signed: 09/15/2020 1:18 PM Workstation Name: [id number]
[2020-09-15 14:13] LABS: Calcium 9.4 mg/dL (8.4-10.2)
[2020-09-15 14:43] LABS: Hematocrit 34.7 % (30.3-42.9); Hemoglobin 11.1 gm/dl (10.1-14.3); Mean Corpuscular HGB Conc 32 % (30-34); Mean Corpuscular Volume 83 fl (79-97); Platelet Count 482 K/mm3 (140-440); Red Blood Count 4.18 M/mm3 (3.65-5.03); Red Cell Distribution Width 14.1 % (13.2-15.2)
[2020-09-15 14:44] LABS: Basophils % (Auto) 0.4 % (0.0-1.8); Eosinophils # (Auto) 0.9 K/mm3 (0.0-0.4); Eosinophils % (Auto) 8.9 % (0.0-4.3); Lymphocytes # (Auto) 1.5 K/mm3 (1.2-5.4); Lymphocytes % (Auto) 15.2 % (13.4-35.0); Monocytes # (Auto) 0.6 K/mm3 (0.0-0.8); Monocytes % (Auto) 5.7 % (0.0-7.3)
[2020-09-15] MEDS ORDERED: IPRATROPIUM/ALBUTEROL SULFATE 3 ML AMPUL.NEB IH ONE (15:31)
[2020-09-15 17:48] VITALS: BP 102/62
== END 2020-09-15 17:47 | disposition home or self-care (01) ==
LOC: ED 12:52
DX: J44.1 Chronic obstructive pulmonary disease with (acute) exacerbation (principal); I10 Essential (primary) hypertension; M19.90 Unspecified osteoarthritis, unspecified site; Z86.69 Personal history of other diseases of the nervous system and sense organs; Z87.442 Personal history of urinary calculi; Z87.891 Personal history of nicotine dependence; Z98.890 Other specified postprocedural states; Z79.899 Other long term (current) drug therapy; Z88.8 Allergy status to other drugs, medicaments and biological substances
CPT/HCPCS: 36415; 71045; 80048; 85025; 94640; 96365; 96375; 99284; J2930; J3475

== ENCOUNTER 2020-11-04 12:49 | Emergency (ER) | payer MEDICARE ==
--- NOTE | 2020-11-04 13:23 | Emergency Department Report ---
ED Shortness of Breath HPI - General Stated Complaint: ISA Time Seen by Provider: 11/04/20 13:14 - History of Present Illness Initial Comments: 75-year-old female, history of COPD (not on home O2), presents to ED with difficulty breathing. Patient states her symptoms began this morning. She self administered 3 breathing treatments at home. She then called EMS. Upon EMS arrival, her O2 sats were 94%, however patient is quite tachypneic. She was gi julian an additional albuterol 5 mg nebulizer, along with mag sulfate, Solu-Medrol, and IM epi x1. Patient was placed on CPAP and transported to the ED. Patient states she is feeling much better. Patient is fully vaccinated for COVID-19 with Moderna vaccine. Patient reports cough. She denies fever, loss of smell or taste, vomiting, diarrhea. MD Complaint: shortness of breath -: This morning Quality: other (painless) Consistency: constant Improves With: bronchodilators Worsens With: exertion Known History Of: COPD Associated Symptoms: cough Treatments Prior to Arrival: bronchodilator, NIPPV, other (mag sulfate, solumedrol) - Related Data Home Oxygen Therapy: No Home Medications Medication Instructions Recorded Confirmed Last Taken Valsartan 160 mg PO DAILY 04/01/18 09/11/19 09/11/19 Aspirin EC [Halfprin EC] 81 mg PO QDAY 05/16/19 09/11/19 09/11/19 amLODIPine 5 mg PO DAILY 05/16/19 09/11/19 09/11/19 traMADoL [Ultram 50 MG tab] 50 mg PO Q8HR PRN 05/16/19 09/11/19 09/10/19 Previous Rx's Medication Instructions Recorded Last Taken Type AtorvaSTATin [Lipitor] 20 mg PO QHS tablet 04/02/18 09/10/19 Rx Acetaminophen [Acetaminophen TAB] 650 mg PO Q4H PRN tablet 09/12/19 Unknown Rx ALBUTEROL NEB's [Proventil 0.083% 2.5 mg IH TID PRN #1 box 09/15/20 Unknown Rx NEBS] Prednisone [predniSONE 10 mg 10 mg PO .TAPER #1 tab.ds.pk 09/15/20 Unknown Rx (6-Day Pack, 21 Tabs)] levoFLOXacin [Levaquin TAB] 500 mg PO QDAY 5 Days #5 tablet 09/15/20 Unknown Rx Albuterol Sulfate [Proventil Hfa] 2 puff IH Q4HR PRN #1 hfa.aer.ad 11/04/20 Unknown Rx predniSONE [Deltasone] 50 mg PO QDAY #5 tab 11/04/20 Unknown Rx Allergies Allergy/AdvReac Type Severity Reaction Status Date / Time No Known Allergies Allergy Unverified 11/04/20 13:18 ED Review of Systems ROS: Stated complaint: ISA Other details as noted in HPI Comment: All other systems reviewed and negative Constitutional: denies: fever ENT: other (denies loss of smelll or taste) Respiratory: cough, shortness of breath, wheezing Gastrointestinal: denies: vomiting, diarrhea ED Past Medical Hx - Past Medical History Hx Hypertension: Yes Hx Heart Attack/AMI: Yes (97,78) Hx Congestive Heart Failure: No Hx Diabetes: (unsure) Hx Deep Vein Thrombosis: No Hx Pulmonary Embolism: No Hx Arthritis: Yes Hx Seizures: Yes Hx Kidney Stones: Yes Hx Asthma: No Hx COPD: Yes Hx Tuberculosis: No Hx Dementia: No Additional medical history: EPHYSEMA - Surgical History Hx Coronary Stent: No Hx Pacemaker: No Hx Internal Defibrillator: No Hx Cholecystectomy: Yes Additional Surgical History: Hyster, BACK SURGERY, LEFT SHOUDER SURGERY, RIGHT HIP REPLACEMENT - Social History Smoking Status: Former Smoker Substance Use Type: Alcohol - Medications Home Medications: Home Medications Medication Instructions Recorded Confirmed Last Taken Type Valsartan 160 mg PO DAILY 04/01/18 09/11/19 09/11/19 History AtorvaSTATin [Lipitor] 20 mg PO QHS tablet 04/02/18 09/11/19 09/10/19 Rx Aspirin EC [Halfprin EC] 81 mg PO QDAY 05/16/19 09/11/19 09/11/19 History amLODIPine 5 mg PO DAILY 05/16/19 09/11/19 09/11/19 History traMADoL [Ultram 50 MG tab] 50 mg PO Q8HR PRN 05/16/19 09/11/19 09/10/19 History Acetaminophen [Acetaminophen TAB] 650 mg PO Q4H PRN tablet 09/12/19 Unknown Rx ALBUTEROL NEB's [Proventil 0.083% 2.5 mg IH TID PRN #1 box 09/15/20 Unknown Rx NEBS] Prednisone [predniSONE 10 mg 10 mg PO .TAPER #1 tab.ds.pk 09/15/20 Unknown Rx (6-Day Pack, 21 Tabs)] levoFLOXacin [Levaquin TAB] 500 mg PO QDAY 5 Days #5 tablet 09/15/20 Unknown Rx Albuterol Sulfate [Proventil Hfa] 2 puff IH Q4HR PRN #1 hfa.aer.ad 11/04/20 Unknown Rx predniSONE [Deltasone] 50 mg PO QDAY #5 tab 11/04/20 Unknown Rx ED Physical Exam - General General appearance: alert, in no apparent distress - Head Head exam: Present: atraumatic, normocephalic - Eye Eye exam: Present: normal appearance, EOMI - ENT ENT exam: Present: mucous membranes moist - Neck Neck exam: Present: normal inspection - Respiratory Respiratory exam: Present: wheezes, other (slightly tachypneic) - Cardiovascular Cardiovascular Exam: Present: regular rate, normal rhythm - GI/Abdominal GI/Abdominal exam: Present: soft. Absent: distended, tenderness - Extremities Exam Extremities exam: Present: normal inspection - Neurological Exam Neurological exam: Present: alert, oriented X3 - Psychiatric Psychiatric exam: Present: normal affect, normal mood - Skin Skin exam: Present: warm, dry, intact, normal color ED Course Vital Signs 11/04/20 11/04/20 11/04/20 13:09 13:17 13:21 Temperature 98 F 98 F Pulse Rate 80 80 Respiratory 24 Rate Blood Pressure 139/79 Blood Pressure 139/79 [Right] O2 Sat by Pulse 99 96 Oximetry 11/04/20 11/04/20 15:17 16:56 Temperature Pulse Rate 82 Respiratory 20 20 Rate Blood Pressure Blood Pressure 145/73 [Right] O2 Sat by Pulse 99 99 Oximetry ED Medical Decision Making - Lab Data Result diagrams: 11/04/20 13:42 11/04/20 13:42 - Radiology Data Radiology results: report reviewed, image reviewed - Medical Decision Making 75-year-old female presents to ED for COPD exacerbation. Patient initially arrived with CPAP in place. CPAP was removed and patient was placed in the room. Patient had already received a total of 4 albuterol nebulizer treatments, in addition to Solu-Medrol, epinephrine, and magnesium sulfate. Upon ED arrival patient states she is feeling much better. Chest x-ray is unremarkable. Labs are normal. Patient has O2 sats of 97% on room air. Patient is no longer in any respiratory distress. She feels comfortable with discharge home. Will discharge at this time with prescriptions. Outpatient follow-up advised, return precautions given. - Differential Diagnosis COPD, pneumonia, Covid Critical care attestation.: If time is entered above; I have spent that time in minutes in the direct care of this critically ill patient, excluding procedure time. ED Disposition Clinical Impression: Acute exacerbation of chronic obstructive pulmonary disease (COPD) Disposition: TO HOME OR SELFCARE Is pt being admited?: No Condition: Stable Instructions: Chronic Obstructive Pulmonary Disease, [id number], Chronic Obstructive Pulmonary Disease (ED) Prescriptions: predniSONE [Deltasone] 50 mg PO QDAY #5 tab Albuterol Sulfate [Proventil Hfa] 2 puff IH Q4HR PRN #1 hfa.aer.ad PRN Reason: Wheezing Referrals: PRIMARY CARE, [Primary Care Provider] - 3-5 Days Time of Disposition: 15:17
--- NOTE | 2020-11-04 13:56 | XRay Report ---
CHEST 1 VIEW INDICATION: sob. COMPARISON: 09/15/2020 FINDINGS: Support devices: None. Heart: Within normal limits. Lungs/Pleura: No acute air space or interstitial disease. Additional findings: None. IMPRESSION: No acute findings. Signer Name: Migue Calzada Jr, MD Signed: 11/04/2020 1:51 PM Workstation Name: [id number]
[2020-11-04 14:45] LABS: Basophils # (Auto) 0.1 K/mm3 (0.0-0.1); Basophils % (Auto) 0.4 % (0.0-1.8); Eosinophils # (Auto) 1.7 K/mm3 (0.0-0.4); Eosinophils % (Auto) 12.3 % (0.0-4.3); Hemoglobin 11.4 gm/dl (10.1-14.3); Lymphocytes # (Auto) 3.3 K/mm3 (1.2-5.4); Lymphocytes % (Auto) 23.4 % (13.4-35.0); Mean Corpuscular HGB Conc 32 % (30-34); Mean Corpuscular Volume 83 fl (79-97); Monocytes # (Auto) 0.4 K/mm3 (0.0-0.8); Monocytes % (Auto) 3.2 % (0.0-7.3); Platelet Count 335 K/mm3 (140-440); Red Blood Count 4.36 M/mm3 (3.65-5.03); Red Cell Distribution Width 14.9 % (13.2-15.2)
[2020-11-04 14:54] LABS: Calcium 9.8 mg/dL (8.4-10.2)
[2020-11-04 16:35] VITALS: BP 145/73
== END 2020-11-04 17:00 | disposition home or self-care (01) ==
LOC: ED 12:49
DX: J44.1 Chronic obstructive pulmonary disease with (acute) exacerbation (principal); I10 Essential (primary) hypertension; I25.2 Old myocardial infarction; M19.90 Unspecified osteoarthritis, unspecified site; Z90.49 Acquired absence of other specified parts of digestive tract; Z79.899 Other long term (current) drug therapy; Z98.890 Other specified postprocedural states; Z90.710 Acquired absence of both cervix and uterus
CPT/HCPCS: 36415; 71045; 80048; 85025

== ENCOUNTER 2020-11-13 12:26 | Emergency (ER) | payer MEDICARE ==
[2020-11-13 12:56] VITALS: BP 128/62
--- NOTE | 2020-11-13 14:13 | XRay Report ---
CHEST 2 VIEWS INDICATION / CLINICAL INFORMATION: SOB. COMPARISON: One view of the chest from 02/13/2021 FINDINGS: SUPPORT DEVICES: Unchanged. HEART / MEDIASTINUM: Stable. LUNGS / PLEURA: No significant pulmonary abnormality. No significant pleural effusion. No pneumothora x. ADDITIONAL FINDINGS: The bones are unchanged. IMPRESSION: 1. No acute abnormality of the chest. No significant interval changes. Signer Name: Ar Abad MD Signed: 11/13/2020 2:09 PM Workstation Name: [id number]
== END 2020-11-14 01:04 | disposition left against medical advice (07) ==
LOC: ED 12:26
DX: B70.0 Diphyllobothriasis (principal); Z53.21 Procedure and treatment not carried out due to patient leaving prior to being seen by health care provider
CPT/HCPCS: 71046